=== PATIENT | male | born 1935 | race Caucasian/White ===

== ENCOUNTER 2017-05-11 07:08 | Observation (INO) | payer MEDICARE, OTHER ==
[2017-05-11] MEDS ORDERED: Aspirin 81 MG Tab.Chew PO ONE (07:16)
[2017-05-11] MEDS ORDERED: Sodium Chloride 0.9% 2.5 ML Syringe FLUSH PRN (07:16)
[2017-05-11] MEDS ORDERED: Sodium Chloride 0.9% 10 ML Syringe FLUSH PRN (07:16)
[2017-05-11] MEDS ORDERED: Nitroglycerin 0.4 MG Tab.SL SL PRN ×2 (07:16→09:38)
--- NOTE | 2017-05-11 07:28 | EDM.PDOC ---
ED HPI GENERAL MEDICAL PROBLEM - General Stated Complaint: CHEST PAINS Time Seen by Provider: 05/11/17 07:15 Source of Information: Reports: Patient History Limitations: Reports: No Limitations - History of Present Illness INITIAL COMMENTS - FREE TEXT/NARRATIVE: History of present illness: []Patient started having substernal, nonradiating, "solid", chest pain 30 minutes prior to arrival that was rated 6/10 associated with sweating. Patient has not had this pain in the past and states that on arrival his pain was 1.5/ 10. He did not take any aspirin. Review of systems: As per history of present illness and below otherwise all systems reviewed and negative. Past medical history: As per history of present illness and as reviewed below otherwise noncontributory. Surgical history: As per history of present illness and as reviewed below otherwise noncontributory. Social history: No reported history of drug or alcohol abuse. Family history: As per history of present illness and as reviewed below otherwise noncontributory. Physical exam: General: Well developed, well nourished in NAD HEENT: Atraumatic, normocephalic, pupils reactive, negative for conjunctival pallor or scleral icterus, mucous membranes moist, throat clear, neck supple, nontender, trachea midline. Lungs: Clear to auscultation, breath sounds equal bilaterally, chest nontender. Heart: S1S2, regular, negative for clicks, rubs, or JVD. Abdomen: Soft, nondistended, nontender. Negative for masses or hepatosplenomegaly. Negative for costovertebral tenderness. Pelvis: Stable nontender. Genitourinary: Deferred. Rectal: Deferred. Extremities: Atraumatic, negative for cords or calf pain. Neurovascular unremarkable. Neuro: Awake, alert, oriented. Cranial nerves II through XII unremarkable. Cerebellum unremarkable. Motor and sensory unremarkable throughout. Exam nonfocal. Diagnostics: []EKG showing Therapeutics: []Aspirin, nitroglycerin, Lopressor given Impression: []Atrial flutter/fib/chest pain/hypertension Plan: []Admit for observation to rule out [place] Definitive disposition and diagnosis as appropriate pending reevaluation and review of above. chest Pain Score (Numeric/FACES): 1 - Related Data Allergies Allergy/AdvReac Type Severity Reaction Status Date / Time No Known Allergies Allergy Verified 05/11/17 07:21 Home Meds: Home Meds Pantoprazole [ProTONIX] 05/11/17 [History] Simvastatin [Zocor] 05/11/17 [History] metFORMIN [Glucophage XR] 05/11/17 [History] ED ROS GENERAL - Review of Systems Review Of Systems: See Below (See history of present illness) ED EXAM, GENERAL - Physical Exam Exam: See Below (See history of present illness) Course - Vital Signs Last Recorded V/S: Last Vital Signs Temp 97.1 F 05/11/17 08:18 Pulse 135 H 05/11/17 09:40 Resp 18 05/11/17 09:40 BP 132/93 H 05/11/17 09:42 Pulse Ox 94 L 05/11/17 09:40 - Orders/Labs/Meds Orders: Active Orders 24 hr Category Date Time Status Patient Status [ADT] Stat ADT 05/11/17 08:54 Active EKG Documentation Completion [RC] STAT Care 05/11/17 07:15 Active EKG Documentation Completion [RC] STAT Care 05/11/17 09:38 Active Chest 1V Frontal [CR] Stat Exams 05/11/17 07:16 Taken Nitroglycerin [Nitrostat] Med 05/11/17 07:16 Active 0.4 mg SL Q5M PRN Nitroglycerin [Nitrostat] Med 05/11/17 09:38 Active 0.4 mg SL Q5M PRN Sodium Chloride 0.9% [Saline Flush] Med 05/11/17 07:16 Active 10 ml FLUSH ASDIRECTED PRN Sodium Chloride 0.9% [Saline Flush] Med 05/11/17 07:16 Active 2.5 ml FLUSH ASDIRECTED PRN Saline Lock Insert [OM.PC] Stat Oth 05/11/17 07:15 Ordered Medication Orders Nitroglycerin (Nitrostat) 0.4 mg SL Q5M PRN PRN Reason: Chest Pain Last Admin: 05/11/17 09:42 Dose: 0.4 mg Nitroglycerin (Nitrostat) 0.4 mg SL Q5M PRN PRN Reason: Chest Pain Sodium Chloride (Saline Flush) 10 ml FLUSH ASDIRECTED PRN PRN Reason: Keep Vein Open Last Admin: 05/11/17 07:34 Dose: 10 ml Sodium Chloride (Saline Flush) 2.5 ml FLUSH ASDIRECTED PRN PRN Reason: Keep Vein Open Last Admin: 05/11/17 07:35 Dose: 2.5 ml Labs: Laboratory Tests 05/11/17 05/11/17 05/11/17 Range/Units 07:25 07:26 07:26 WBC 7.59 (4.0-11.0) K/uL RBC 4.25 L (4.50-5.90) M/uL Hgb 13.3 (13.0-17.0) g/dL Hct 40.7 (38.0-50.0) % MCV 95.8 (80.0-98.0) fL MCH 31.3 (27.0-32.0) pg MCHC 32.7 (31.0-37.0) g/dL RDW Std Deviation 48.6 (28.0-62.0) fl RDW Coeff of Kiersten 14 (11.0-15.0) % Plt Count 178 (150-400) K/uL MPV 10.40 (7.40-12.00) fL Neut % (Auto) 66.7 (48.0-80.0) % Lymph % (Auto) 20.9 (16.0-40.0) % [place] % (Auto) 8.8 (0.0-15.0) % Eos % (Auto) 3.2 (0.0-7.0) % Baso % (Auto) 0.4 (0.0-1.5) % Neut # (Auto) 5.1 (1.4-5.7) K/uL Lymph # (Auto) 1.6 (0.6-2.4) K/uL [place] # (Auto) 0.7 (0.0-0.8) K/uL Eos # (Auto) 0.2 (0.0-0.7) K/uL Baso # (Auto) 0.0 (0.0-0.1) K/uL Nucleated RBC % 0.0 /100WBC Nucleated RBCs # 0 K/uL D-Dimer, Quantitative 0.32 (0.0-0.52) mg/LFEU Sodium 139 (136-146) mmol/L Potassium 4.4 (3.5-5.1) mmol/L Chloride 104 (98-110) mmol/L Carbon Dioxide 23 (21-31) mmol/L BUN 17 (6.0-23.0) mg/dL Creatinine 1.1 (0.6-1.5) mg/dL Est Cr Clr Drug Dosing 49.24 mL/min Estimated GFR (MDRD) > 60.0 ml/min Glucose 135 H (60-110) mg/dL Calcium 9.5 (8.8-10.8) mg/dL Total Bilirubin 0.4 (0.1-1.5) mg/dL AST 13 (5-40) IU/L ALT 15 (8-54) IU/L Alkaline Phosphatase 50 (40-150) Troponin I < 0.10 (0.0-0.29) NG/ML B-Natriuretic Peptide (<100) PG/ML Total Protein 7.4 (6.0-8.0) g/dL Albumin 4.2 (3.4-4.8) g/dL Globulin 3.2 (2.0-3.5) g/dL Albumin/Globulin Ratio 1.3 (1.3-2.8) 05/11/17 Range/Units 07:35 WBC (4.0-11.0) K/uL RBC (4.50-5.90) M/uL Hgb (13.0-17.0) g/dL Hct (38.0-50.0) % MCV (80.0-98.0) fL MCH (27.0-32.0) pg MCHC (31.0-37.0) g/dL RDW Std Deviation (28.0-62.0) fl RDW Coeff of Kiersten (11.0-15.0) % Plt Count (150-400) K/uL MPV (7.40-12.00) fL Neut % (Auto) (48.0-80.0) % Lymph % (Auto) (16.0-40.0) % [place] % (Auto) (0.0-15.0) % Eos % (Auto) (0.0-7.0) % Baso % (Auto) (0.0-1.5) % Neut # (Auto) (1.4-5.7) K/uL Lymph # (Auto) (0.6-2.4) K/uL [place] # (Auto) (0.0-0.8) K/uL Eos # (Auto) (0.0-0.7) K/uL Baso # (Auto) (0.0-0.1) K/uL Nucleated RBC % /100WBC Nucleated RBCs # K/uL D-Dimer, Quantitative (0.0-0.52) mg/LFEU Sodium (136-146) mmol/L Potassium (3.5-5.1) mmol/L Chloride (98-110) mmol/L Carbon Dioxide (21-31) mmol/L BUN (6.0-23.0) mg/dL Creatinine (0.6-1.5) mg/dL Est Cr Clr Drug Dosing mL/min Estimated GFR (MDRD) ml/min Glucose (60-110) mg/dL Calcium (8.8-10.8) mg/dL Total Bilirubin (0.1-1.5) mg/dL AST (5-40) IU/L ALT (8-54) IU/L Alkaline Phosphatase (40-150) Troponin I (0.0-0.29) NG/ML B-Natriuretic Peptide 213 H (<100) PG/ML Total Protein (6.0-8.0) g/dL Albumin (3.4-4.8) g/dL Globulin (2.0-3.5) g/dL Albumin/Globulin Ratio (1.3-2.8) Meds: Medications Generic Name Dose Route Start Last Admin Trade Name Freq PRN Reason Stop Dose Admin Nitroglycerin 0.4 mg 05/11/17 07:16 05/11/17 09:42 Nitrostat SL 0.4 mg Q5M PRN Administration Chest Pain Nitroglycerin 0.4 mg 05/11/17 09:38 Nitrostat SL Q5M PRN Chest Pain Sodium Chloride 10 ml 05/11/17 07:16 05/11/17 07:34 Saline Flush FLUSH 10 ml ASDIRECTED PRN Administration Keep Vein Open Sodium Chloride 2.5 ml 05/11/17 07:16 05/11/17 07:35 Saline Flush FLUSH 2.5 ml ASDIRECTED PRN Administration Keep Vein Open Discontinued Medications Generic Name Dose Route Start Last Admin Trade Name Freq PRN Reason Stop Dose Admin Aspirin 324 mg 05/11/17 07:16 05/11/17 07:34 Aspirin PO 05/11/17 07:17 324 mg ONETIME ONE Administration Sodium Chloride 500 mls @ 999 mls/hr 05/11/17 08:22 05/11/17 08:25 Normal Saline IV 05/11/17 08:52 999 mls/hr .Bolus ONE Administration Labetalol HCl 20 mg 05/11/17 08:34 05/11/17 09:39 Normodyne IVPUSH 05/11/17 08:35 Not Given .BOLUS ONE Protocol Labetalol HCl 20 mg 05/11/17 09:30 Normodyne IVPUSH 05/11/17 09:31 .BOLUS ONE Protocol Metoprolol Tartrate 5 mg 05/11/17 07:30 05/11/17 07:57 Lopressor IVPUSH 05/11/17 07:41 5 mg Q5M MANASA Administration Departure - Departure Time of Disposition: 10:03 Disposition: Refer to Observation Condition: Good Clinical Impression: Atrial fib/flutter, transient, Uncontrolled hypertension - My Orders Last 24 Hours: My Active Orders 05/11/17 07:15 EKG Documentation Completion [RC] STAT Saline Lock Insert [OM.PC] Stat 05/11/17 07:16 Chest 1V Frontal [CR] Stat Nitroglycerin [Nitrostat] 0.4 mg SL Q5M PRN Sodium Chloride 0.9% [Saline Flush] 10 ml FLUSH ASDIRECTED PRN Sodium Chloride 0.9% [Saline Flush] 2.5 ml FLUSH ASDIRECTED PRN 05/11/17 08:54 Patient Status [ADT] Stat 05/11/17 09:38 EKG Documentation Completion [RC] STAT Nitroglycerin [Nitrostat] 0.4 mg SL Q5M PRN - Assessment/Plan Last 24 Hours: My Active Orders 05/11/17 07:15 EKG Documentation Completion [RC] STAT Saline Lock Insert [OM.PC] Stat 05/11/17 07:16 Chest 1V Frontal [CR] Stat Nitroglycerin [Nitrostat] 0.4 mg SL Q5M PRN Sodium Chloride 0.9% [Saline Flush] 10 ml FLUSH ASDIRECTED PRN Sodium Chloride 0.9% [Saline Flush] 2.5 ml FLUSH ASDIRECTED PRN 05/11/17 08:54 Patient Status [ADT] Stat 05/11/17 09:38 EKG Documentation Completion [RC] STAT Nitroglycerin [Nitrostat] 0.4 mg SL Q5M PRN
[2017-05-11] MEDS: Metoprolol Tartrate 5 MG/5 ML SDV IVPUSH SCH ×3 (07:38→07:57)
[2017-05-11 07:55] LABS: CHLORIDE,CL 104 mmol/L (98-110); SODIUM,NA 139 mmol/L (136-146)
[2017-05-11] MEDS ORDERED: Sodium Chloride 0.9% 500 ML IV ONE (08:22)
[2017-05-11] MEDS ORDERED: Labetalol 5 MG/ML 5 ML Syringe IVPUSH ONE (08:34)
[2017-05-11] MEDS ORDERED: Labetalol 100 MG/20 ML MDV IVPUSH ONE (09:30)
--- NOTE | 2017-05-11 11:15 | PCM.HP ---
H&P History of Present Illness - General Date of Service: 05/11/17 Admit Problem/Dx: Chest pain, atrial fibrillation. Source of Information: Patient, Family History Limitations: Reports: No Limitations - History of Present Illness Initial Comments - Free Text/Narative: This 81 year old male with pmh of DM type 2, obesity, TIA 15 years ago or so, and obesity presented to the ED this morning with acute onset of substernal chest pain. This happened after he got out of the shower and was getting dressed. He denies radiation, no N/V, but did feel diaphoretic, lightheaded and dizzy. He denies feeling palpitations. He arrived within 30 minutes of pain starting to ED. He reports a strong family history of CAD, a brother and his father had MIS in their 40-50s. 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 He has controlled DM on metformin. He denies tobacco or recreational drug use. He reports he drinks a bottle of wine nightly. No feelings of alcohol withdrawl and does not feel as though he needs a drink upon waking up. In the ED labwork WNL. Magnesium 1.0 TSH 2.55. Initial EKG HR noted to be 137, sinus tachy vs atrial rhythm. He continued to have chest pain, he was given ASA and nitro SL x 1. This caused hypotension and he was give a fluid bolus of 500 ml. Repeat EKG reveal atrial fibrillation, rates 130s, he was then given 3 doses of Lopressor total of 15 mg IV. His rate was better controlled but remained Afib. He was feeling back to normal and no further chest pain. He will be admitted for new onset afib and chest pain. PCP is in [facility] But he goes back rarely. Will arrange follow up here with Dr. Skelton chest Pain Score (Numeric/FACES): 1 - Related Data Allergies/Adverse Reactions: Allergies Allergy/AdvReac Type Severity Reaction Status Date / Time No Known Allergies Allergy Verified 05/11/17 07:21 Home Medications: Home Meds Ferrous Sulfate [Iron] 1 tab PO DAILY 05/11/17 [History] Pantoprazole [ProTONIX] 1 tab PO DAILY 05/11/17 [History] Simvastatin [Zocor] 1 tab PO DAILY 05/11/17 [History] metFORMIN HCl [Metformin HCl] 1,000 mg PO BID 05/11/17 [History] Past Medical History Cardiovascular History: Reports: Heart Murmur, High Cholesterol, Hypertension ( hx of, but no longer takes medication for.). Denies: Blood Clots/VTE/DVT, Heart Failure, [place] Respiratory History: Reports: None. Denies: COPD, PE Gastrointestinal History: Reports: GERD Genitourinary History: Denies: Acute Renal Failure, Chronic Renal Insuffiency Neurological History: Reports: TIA (15 years ago) Psychiatric History: Reports: None Endocrine/Metabolic History: Reports: Diabetes, Type II, Obesity/BMI 30+ - Infectious Disease History Infectious Disease History: Reports: Chicken Pox, Measles, Mumps, Shingles - Past Surgical History Cardiovascular Surgical History: Reports: None GI Surgical History: Reports: Appendectomy, Cholecystectomy, Hernia, Abdominal 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 (x1 removed) Social & Family History - Family History Cardiac: Reports: [place] (brother and father) - Tobacco Use Smoking Status *Q: Never Smoker - Alcohol Use Days Per Week of Alcohol Use: 7 Number of Drinks Per Day: 2 Total Drinks Per Week: 14 - Recreational Drug Use Recreational Drug Use: No H&P Review of Systems - Review of Systems: Review Of Systems: See Below General: Reports: No Symptoms. Denies: Fever, Chills, Malaise HEENT: Reports: No Symptoms. Denies: Headaches, Sinus Congestion, Sore Throat Pulmonary: Reports: Shortness of Breath. Denies: Cough, Sputum Cardiovascular: Reports: Chest Pain (now gone. ), Lightheadedness. Denies: Palpitations, Orthopnea, Edema, Syncope Gastrointestinal: Reports: No Symptoms. Denies: Abdominal Pain, Black Stool, Bloody Stool, Decreased Appetite, Nausea, Vomiting Genitourinary: Reports: No Symptoms. Denies: Dysuria, Frequency, Burning Musculoskeletal: Reports: No Symptoms Psychiatric: Reports: No Symptoms Neurological: Reports: No Symptoms Exam - Exam Exam: See Below - Vital Signs Vital Signs: Last Vital Signs Temp 97.9 F 05/11/17 11:05 Pulse 71 05/11/17 11:05 Resp 20 05/11/17 11:05 BP 108/62 05/11/17 11:05 Pulse Ox 95 05/11/17 11:05 Weight: 112 kg - Exam Quality Assessment: Supplemental Oxygen, DVT Prophylaxis General: Alert, Oriented, Cooperative HEENT: Conjunctiva Clear, Mucosa Moist & [place], Posterior Pharynx Clear Neck: Supple Lungs: Clear to Auscultation, Normal Respiratory Effort Cardiovascular: Regular Rate, Irregular Rhythm, Systolic Murmur GI/Abdominal Exam: Normal Bowel Sounds, Soft, Non-Tender, No Distention, Other ( obese abdomen makes assessment difficult) Back Exam: Normal Inspection, Full Range of Motion, NT Extremities: Normal Inspection, Normal Range of Motion, Non-Tender, No Pedal Edema, Normal Capillary Refill Skin: Dry, Intact Neuro Extensive - Mental Status: Alert, Oriented x3, Normal Mood/Affect, Normal Cognition Neuro Extensive - Motor, Sensory, Reflexes: CN II-XII Intact, Normal Gait, Normal Reflexes Psychiatric: Alert, Normal Affect, Normal Mood - Patient Data Result Diagrams: 05/11/17 07:26 05/11/17 07:26 EKG INTERPRETATION EKG Date: 05/11/17 Rhythm: A-Fib Rate (Beats/Min): 137 P-Wave: Absent QRS: Normal ST-T: Normal *Q Meaningful Use (ADM) - VTE *Q VTE Criteria *Q: - Stroke *Q Stroke Criteria *Q: - AMI *Q AMI Criteria *Q: - Problem List (1) New onset atrial fibrillation SNOMED Code(s): 02245463 ICD Code: I48.91 - UNSPECIFIED ATRIAL FIBRILLATION Status: Acute Current Visit: Yes (2) Chest pain SNOMED Code(s): 34252800 ICD Code: R07.9 - CHEST PAIN, UNSPECIFIED Status: Acute Current Visit: Yes (3) Hypomagnesemia SNOMED Code(s): 434035496 ICD Code: E83.42 - HYPOMAGNESEMIA Status: Acute Current Visit: Yes (4) DM type 2 (diabetes mellitus, type 2) SNOMED Code(s): 89956373 ICD Code: E11.9 - TYPE 2 DIABETES MELLITUS WITHOUT COMPLICATIONS Status: Chronic Current Visit: Yes Qualifiers: Diabetes mellitus complication status: without complication Diabetes mellitus skilled nursing insulin use: without regional intermodal truck driver use Qualified Code(s): E11.9 - Type 2 diabetes mellitus without complications (5) Obesity (BMI 30-39.9) SNOMED Code(s): 223458424 ICD Code: E66.9 - OBESITY, UNSPECIFIED Status: Chronic Current Visit: Yes (6) Hyperlipidemia SNOMED Code(s): 45187191 ICD Code: E78.5 - HYPERLIPIDEMIA, UNSPECIFIED Status: Chronic Current Visit: Yes Problem List Initiated/Reviewed/Updated: Yes Orders Last 24hrs: Active Orders 24 hr Category Date Time Status Echo Comp wo Cont [US] Urgent Exams 05/11/17 10:01 Ordered Medication Orders Nitroglycerin (Nitrostat) 0.4 mg SL Q5M PRN PRN Reason: Chest Pain Last Admin: 05/11/17 09:42 Dose: 0.4 mg Nitroglycerin (Nitrostat) 0.4 mg SL Q5M PRN PRN Reason: Chest Pain Sodium Chloride (Saline Flush) 10 ml FLUSH ASDIRECTED PRN PRN Reason: Keep Vein Open Last Admin: 05/11/17 07:34 Dose: 10 ml Sodium Chloride (Saline Flush) 2.5 ml FLUSH ASDIRECTED PRN PRN Reason: Keep Vein Open Last Admin: 05/11/17 07:35 Dose: 2.5 ml Assessment/Plan Comment:: This 81 year old male admitted for new onset afib and chest pain 1. New onset A fib: Consulted Dr. Skelton. Will monitor on telemetry. Start Metoprolol XL 25 daily for now. Repeat EKG on floor shows he is now in SR rates in the 70s. CHADS-VASC score 4, will also start Xarelto 20 mg daily. He was educated on side effects of anticoagulation, such as intestinal bleeding and cerebral bleeds and what to monitor for. He verbally reports understanding. Magnesium low at 1.0, will replace with 4 gm IV. TSh WNL. Dr Joe also ordered for Lasix 20 mg. BNP 213. 2. Chest pain: No asymptomatic. Will again, monitor on telemetry. Trend troponins. Chest pain likely secondary to afib with RVR. 3. DM type 2: Monitor BS, well controlled. Continue Metformin for now. 4. Dyslipidemia: Continue Simvastatin. VTE: Xarelto Dispo: 1-2 days.
[2017-05-11] MEDS ORDERED: Acetaminophen 325 MG Tab PO PRN (11:18)
[2017-05-11] MEDS ORDERED: Furosemide 20 MG/2 ML VIAL IVPUSH ONE (11:20)
[2017-05-11] MEDS: Metoprolol Succinate 25 MG Tab.ER PO SCH (11:32)
[2017-05-11] MEDS ORDERED: Magnesium Sulfate/Water 4 GM in Premix Bag 1 BAG IV ONE (12:01)
--- NOTE | 2017-05-11 13:26 | CONS ---
DATE OF CONSULTATION: DATE OF : 1935 PRIMARY CARE PHYSICIAN: None PCP REASON FOR CONSULTATION: Atrial fibrillation and chest pain. HISTORY: This is an 81-year-old male with history of diabetes as well as hyperlipidemia, who presented to the hospital at this time due to heart racing and chest pain. He lives in [place] as well as in [place], [place]. This morning, when he got out from the shower, he started having chest pressure in the retrosternal area with no radiation. He rated it 5 on 10-pain scale. It lasted for 3 hours with feeling woozy, some shortness of breath and some cold sweats. No nausea and no vomiting. Then, he decided to come to the emergency room. In the emergency room, he was found to have an atrial fibrillation with a heart rate of 130, and he was given Lopressor 5 mg IV x2, as well as baby aspirin x4, and a nitroglycerin x1, and it seemed like the chest pressure seemed to subside. Currently, he converted to sinus rhythm. Chest pain has gone away. He denied a history of atrial fibrillation. Denied history of chest pressure like this, but most of the time when he has some chest symptom, it has happened when he eats late at night. He has a history of GERD, however, EGD has never been successfully performed. He had a colonoscopy a year ago and it seemed to be normal, no bleeding point. The reason for colonoscopy was anemia. Currently, he has hematocrit of 40. He stated that he had his stress test done 20 years ago. Unclear reason for his stress test, but it turned out very well. He also had an echo done in [place] in June of this year, and the report was not available. He denied orthopnea or PND. He is pretty active, still works, but he does not exercise. He did not have any problem with walking 2 flights of stairs. PAST MEDICAL HISTORY: Includes diabetes and hyperlipidemia. He had a sleep test done 4 years ago, and he did not have sleep apnea. SOCIAL HISTORY: Moderate smoker in the past, but he stopped for almost 10 years. No drug use. No alcohol consumption. FAMILY HISTORY: His father had a history of heart disease at 50. Brother with history of heart attack at 45. Mother had a history of heart attack at 54. CURRENT MEDICATIONS: Includes metformin, simvastatin, and Protonix as well. REVIEW OF SYSTEMS: Except for indicated in the HPI, it was negative. PHYSICAL EXAMINATION: VITAL SIGNS: Initial blood pressure was 174/118 and currently is 108/62; heart rate initially was 137 and currently 71, sinus rhythm; O2 saturation 95% on 2 L; temperature 36.6; respirations 15 to 20. HEENT: Not pale and no jaundiced. NECK: JVD is mildly positive. LUNGS: Crackles bilaterally. ABDOMEN: Soft and nontender. Bowel sounds present. No hepatosplenomegaly. HEART: Normal S1, S2. Irregular rate and rhythm. No murmur. EXTREMITIES: Legs, no edema. INVESTIGATIONS: CBC shows WBC 7, hematocrit of 40, hemoglobin of 13, and platelets 178. D-dimer 0.32. Sodium 139, potassium 4.4, chloride 104, bicarb 23, BUN 17, and creatinine 1.1. GFR is more than 60. BNP 213. TSH 2.5. Troponin was negative. ASSESSMENT AND PLAN: This is an 81-year-old male with history of diabetes and hyperlipidemia with chest pain as well as new onset of atrial fibrillation. Currently, he was converted to sinus rhythm. His EKG showed atrial fibrillation. I did not appreciate any ST-segment depression. We will do an echocardiogram, and he is currently in sinus rhythm. We will start on Toprol-XL 25 mg once a day as well as explained to him about stroke risk from atrial fibrillation and that he needs to be on the blood thinner. I will start him on Xarelto 20 mg once a day. Regarding chest pain with fast heart rate, I will definitely do a stress test. He stated that he cannot do a treadmill, would order a Lexiscan as an outpatient. I think he has some mild heart failure probably from atrial fibrillation with rapid ventricular response. We will give him one dose of Lasix 20 mg IV and then go from there. I will follow him. NGOC MENENDEZ /[id number]
[2017-05-11] MEDS: metFORMIN 500 MG Tab PO SCH ×2 (13:53→17:48)
--- NOTE | 2017-05-11 15:46 | CR ---
EXAM DATE: 05/11/17 PATIENT'S AGE: 81 Patient: JUDY GRAJEDA Facility: [place], [place] Site . Site : 1935 Study: XRay Chest [id number]/8/2017 8:11:11 AM Ordering Physician: Doctor Henson Final Report: INDICATION: PAIN/SHORTNESS OF BREATH Single AP view Findings: The lungs are clear. Pulmonary vascularity, mediastinum and cardiac silhouette are within normal limits. No effusions and no pneumothorax. Osseous structures appear unremarkable. Impression: No evidence of acute cardiopulmonary disease. Dictated by: Ned Chan MD @ 05/11/2017 08:20:55 (Electronic Signature) Report Signed by Proxy. CATHERINE
[2017-05-11] MEDS ORDERED: metFORMIN 500 MG Tab.ER PO SCH (17:00)
[2017-05-11] MEDS ORDERED: metFORMIN 500 MG Tab PO SCH (17:00)
[2017-05-11] MEDS ORDERED: Rivaroxaban 10 MG Tab PO SCH (17:30)
[2017-05-12 06:45] LABS: CHLORIDE,CL 105 mmol/L (98-110); SODIUM,NA 140 mmol/L (136-146)
[2017-05-12] MEDS ORDERED: Magnesium Sulfate/Water 2 GM in Premix Bag 1 BAG IV ONE (08:03)
[2017-05-12] MEDS: Metoprolol Succinate 25 MG Tab.ER PO SCH (08:31)
[2017-05-12] MEDS: metFORMIN 500 MG Tab PO SCH (08:32)
[2017-05-12] MEDS ORDERED: Simvastatin 10 MG Tab PO SCH (09:00)
[2017-05-12] MEDS ORDERED: Pantoprazole 40 MG Tab.CR PO SCH (09:00)
[2017-05-12] MEDS ORDERED: Ferrous Sulfate 325 MG Tab PO SCH (09:00)
--- NOTE | 2017-05-12 09:43 | PCM.PN ---
- General Info Date of Service: 05/12/17 Functional Status: Reports: Pain Controlled, Tolerating Diet, Urinating - Review of Systems General: Reports: No Symptoms HEENT: Reports: No Symptoms Pulmonary: Reports: No Symptoms Cardiovascular: Reports: No Symptoms Gastrointestinal: Reports: No Symptoms Genitourinary: Reports: No Symptoms Musculoskeletal: Reports: No Symptoms Skin: Reports: No Symptoms Neurological: Reports: No Symptoms Psychiatric: Reports: No Symptoms - Patient Data Vitals - Most Recent: Last Vital Signs Temp 97.1 F 05/12/17 07:00 Pulse 82 05/12/17 08:31 Resp 20 05/12/17 07:00 BP 100/57 L 05/12/17 08:31 Pulse Ox 92 L 05/12/17 07:00 Weight - Most Recent: 112 kg I&O - Last 24 Hours: Intake & Output 05/11/17 05/12/17 05/12/17 22:59 06:59 14:59 Intake Total 800 250 Output Total 1500 300 Balance -700 -50 Lab Results Last 24 Hours: Laboratory Results - last 24 hr 05/11/17 05/11/17 05/11/17 Range/Units 11:34 13:30 17:11 WBC (4.0-11.0) K/uL RBC (4.50-5.90) M/uL Hgb (13.0-17.0) g/dL Hct (38.0-50.0) % MCV (80.0-98.0) fL MCH (27.0-32.0) pg MCHC (31.0-37.0) g/dL RDW Std Deviation (28.0-62.0) fl RDW Coeff of Kiersten (11.0-15.0) % Plt Count (150-400) K/uL MPV (7.40-12.00) fL Neut % (Auto) (48.0-80.0) % Lymph % (Auto) (16.0-40.0) % [place] % (Auto) (0.0-15.0) % Eos % (Auto) (0.0-7.0) % Baso % (Auto) (0.0-1.5) % Neut # (Auto) (1.4-5.7) K/uL Lymph # (Auto) (0.6-2.4) K/uL [place] # (Auto) (0.0-0.8) K/uL Eos # (Auto) (0.0-0.7) K/uL Baso # (Auto) (0.0-0.1) K/uL Nucleated RBC % /100WBC Nucleated RBCs # K/uL Sodium (136-146) mmol/L Potassium (3.5-5.1) mmol/L Chloride (98-110) mmol/L Carbon Dioxide (21-31) mmol/L BUN (6.0-23.0) mg/dL Creatinine (0.6-1.5) mg/dL Est Cr Clr Drug Dosing mL/min Estimated GFR (MDRD) ml/min Glucose (60-110) mg/dL POC Glucose 126 H 109 (60-110) mg/dL Calcium (8.8-10.8) mg/dL Magnesium (1.5-2.3) mEq/L Troponin I < 0.10 (0.0-0.29) NG/ML 05/11/17 05/12/17 05/12/17 Range/Units 19:32 06:10 06:10 WBC 6.99 (4.0-11.0) K/uL RBC 3.91 L (4.50-5.90) M/uL Hgb 12.2 L (13.0-17.0) g/dL Hct 37.7 L (38.0-50.0) % MCV 96.4 (80.0-98.0) fL MCH 31.2 (27.0-32.0) pg MCHC 32.4 (31.0-37.0) g/dL RDW Std Deviation 47.8 (28.0-62.0) fl RDW Coeff of Kiersten 14 (11.0-15.0) % Plt Count 175 (150-400) K/uL MPV 10.50 (7.40-12.00) fL Neut % (Auto) 64.8 (48.0-80.0) % Lymph % (Auto) 23.7 (16.0-40.0) % [place] % (Auto) 7.9 (0.0-15.0) % Eos % (Auto) 3.3 (0.0-7.0) % Baso % (Auto) 0.3 (0.0-1.5) % Neut # (Auto) 4.5 (1.4-5.7) K/uL Lymph # (Auto) 1.7 (0.6-2.4) K/uL [place] # (Auto) 0.6 (0.0-0.8) K/uL Eos # (Auto) 0.2 (0.0-0.7) K/uL Baso # (Auto) 0.0 (0.0-0.1) K/uL Nucleated RBC % 0.0 /100WBC Nucleated RBCs # 0 K/uL Sodium 140 (136-146) mmol/L Potassium 4.4 (3.5-5.1) mmol/L Chloride 105 (98-110) mmol/L Carbon Dioxide 27 (21-31) mmol/L BUN 18 (6.0-23.0) mg/dL Creatinine 1.0 (0.6-1.5) mg/dL Est Cr Clr Drug Dosing 54.03 mL/min Estimated GFR (MDRD) > 60.0 ml/min Glucose 116 H (60-110) mg/dL POC Glucose (60-110) mg/dL Calcium 8.7 L (8.8-10.8) mg/dL Magnesium 1.4 L (1.5-2.3) mEq/L Troponin I < 0.10 (0.0-0.29) NG/ML 05/12/17 Range/Units 06:26 WBC (4.0-11.0) K/uL RBC (4.50-5.90) M/uL Hgb (13.0-17.0) g/dL Hct (38.0-50.0) % MCV (80.0-98.0) fL MCH (27.0-32.0) pg MCHC (31.0-37.0) g/dL RDW Std Deviation (28.0-62.0) fl RDW Coeff of Kiersten (11.0-15.0) % Plt Count (150-400) K/uL MPV (7.40-12.00) fL Neut % (Auto) (48.0-80.0) % Lymph % (Auto) (16.0-40.0) % [place] % (Auto) (0.0-15.0) % Eos % (Auto) (0.0-7.0) % Baso % (Auto) (0.0-1.5) % Neut # (Auto) (1.4-5.7) K/uL Lymph # (Auto) (0.6-2.4) K/uL [place] # (Auto) (0.0-0.8) K/uL Eos # (Auto) (0.0-0.7) K/uL Baso # (Auto) (0.0-0.1) K/uL Nucleated RBC % /100WBC Nucleated RBCs # K/uL Sodium (136-146) mmol/L Potassium (3.5-5.1) mmol/L Chloride (98-110) mmol/L Carbon Dioxide (21-31) mmol/L BUN (6.0-23.0) mg/dL Creatinine (0.6-1.5) mg/dL Est Cr Clr Drug Dosing mL/min Estimated GFR (MDRD) ml/min Glucose (60-110) mg/dL POC Glucose 111 H (60-110) mg/dL Calcium (8.8-10.8) mg/dL Magnesium (1.5-2.3) mEq/L Troponin I (0.0-0.29) NG/ML Med Orders - Current: Current Medications Acetaminophen (Tylenol) 650 mg PO Q4H PRN PRN Reason: Pain (mild 1-3) Ferrous Sulfate (Ferrous Sulfate) 325 mg PO DAILY [facility] Last Admin: 05/12/17 08:31 Dose: 325 mg Metformin HCl (Glucophage) 1,000 mg PO BIDMEALS [facility] Last Admin: 05/12/17 08:32 Dose: 1,000 mg Metoprolol Succinate (Toprol Xl) 25 mg PO DAILY [facility] Last Admin: 05/12/17 08:31 Dose: 25 mg Pantoprazole Sodium (Protonix) 40 mg PO ACBREAKFAST [facility] Last Admin: 05/12/17 08:31 Dose: 40 mg Rivaroxaban (Xarelto) 20 mg PO WITHDINNER [facility] Last Admin: 05/11/17 17:48 Dose: 20 mg Simvastatin (Zocor) 10 mg PO BEDTIME [facility] Last Admin: 05/12/17 08:31 Dose: 10 mg Sodium Chloride (Saline Flush) 10 ml FLUSH ASDIRECTED PRN PRN Reason: Keep Vein Open Last Admin: 05/11/17 07:34 Dose: 10 ml Sodium Chloride (Saline Flush) 2.5 ml FLUSH ASDIRECTED PRN PRN Reason: Keep Vein Open Last Admin: 05/11/17 07:35 Dose: 2.5 ml Discontinued Medications Aspirin (Aspirin) 324 mg PO ONETIME ONE Stop: 05/11/17 07:17 Last Admin: 05/11/17 07:34 Dose: 324 mg Furosemide (Lasix) 20 mg IVPUSH ONETIME ONE Stop: 05/11/17 11:21 Last Admin: 05/11/17 11:32 Dose: 20 mg Sodium Chloride (Normal Saline) 500 mls @ 999 mls/hr IV .Bolus ONE Stop: 05/11/17 08:52 Last Admin: 05/11/17 08:25 Dose: 999 mls/hr Magnesium Sulfate 4 gm/ Premix 100 mls @ 50 mls/hr IV ONETIME ONE Stop: 05/11/17 14:00 Last Admin: 05/11/17 12:32 Dose: 50 mls/hr Magnesium Sulfate 2 gm/ Premix 50 mls @ 50 mls/hr IV ONETIME ONE Stop: 05/12/17 09:02 Last Admin: 05/12/17 08:55 Dose: 50 mls/hr Labetalol HCl (Normodyne) 20 mg IVPUSH .BOLUS ONE PRN Reason: Protocol Stop: 05/11/17 08:35 Last Admin: 05/11/17 09:39 Dose: Not Given Labetalol HCl (Normodyne) 20 mg IVPUSH .BOLUS ONE PRN Reason: Protocol Stop: 05/11/17 09:31 Last Admin: 05/11/17 10:06 Dose: Not Given Metformin HCl (Glucophage Xr) 500 mg PO BIDMEALS [facility] Metformin HCl (Glucophage) 500 mg PO BIDMEALS [facility] Metoprolol Tartrate (Lopressor) 5 mg IVPUSH Q5M [facility] Stop: 05/11/17 07:41 Last Admin: 05/11/17 07:57 Dose: 5 mg Nitroglycerin (Nitrostat) 0.4 mg SL Q5M PRN PRN Reason: Chest Pain Last Admin: 05/11/17 09:42 Dose: 0.4 mg Nitroglycerin (Nitrostat) 0.4 mg SL Q5M PRN PRN Reason: Chest Pain - Exam General: Alert, Oriented HEENT: Pupils Equal, EOMI Neck: Supple, Trachea Midline Lungs: Clear to Auscultation, Normal Respiratory Effort Cardiovascular: Regular Rate, Regular Rhythm GI/Abdominal Exam: Normal Bowel Sounds, Soft Back Exam: Normal Inspection Extremities: Normal Inspection Skin: Warm, Dry, Intact Neurological: No New Focal Deficit Psy/Mental Status: Alert, Normal Affect, Normal Mood - Problem List Review Problem List Initiated/Reviewed/Updated: Yes - Plan Plan:: This 81 year old male admitted for new onset afib and chest pain 1. New onset A fib: Consulted Dr. Skelton. Will monitor on telemetry. Start Metoprolol XL 25 daily for now. Repeat EKG on floor shows he is now in SR rates in the 70s. CHADS-VASC score 4, will also start Xarelto 20 mg daily. He was educated on side effects of anticoagulation, such as intestinal bleeding and cerebral bleeds and what to monitor for. He verbally reports understanding. Magnesium low at 1.0, will replace with 4 gm IV. TSh WNL. Dr Joe also ordered for Lasix 20 mg. BNP 213. 2. Chest pain: No asymptomatic. Will again, monitor on telemetry. troponins x 3 negative. Chest pain likely secondary to afib with RVR. 3. DM type 2: Monitor BS, well controlled. Continue Metformin for now. 4. Dyslipidemia: Continue Simvastatin. VTE: Xarelto Dispo: 1-2 days.
--- NOTE | 2017-05-12 10:08 | PCM.DCSUM1 ---
Discharge Summary - Hospital Course Free Text/Narrative:: 81 yo male with hsitory of DM, hyperlipidemia admmitted for chest pain and new onset of atrial fibrillation. EKG showed atrial fibrillation without ST changes. He was started on topral xl for rate control and xarelto for anticoagulation. His troponin x 3 negative. He was monitored on telemetry. He remained in sinus rhythm. CXR no acute cardiopulmonary disease. Echo was done pending results. He was discharged in stable condition with outpatient stress lexiscan stress test. He was discharged with xarelto and toprol. He is to follow up with our professor of mechanical engineering Dr. Adler - Discharge Data Discharge Date: 05/12/17 Discharge Disposition: Home, Self-Care 01 Condition: Good - Patient Summary/Data Consults: Consultations 05/11/17 11:18 Consult to Physician [CONS] Routine - Patient Instructions Diet: Heart Healthy Diet, Diabetic Diet Activity: As Tolerated Driving: May Drive Today Showering/Bathing: May Shower Notify Provider of: Fever, Increased Pain, Swelling and Redness, Drainage, Nausea and/or Vomiting Other/Special Instructions: please get lexiscan stress test - Discharge Plan Prescriptions/Med Rec: Metoprolol Succinate [Toprol XL] 25 mg PO DAILY #30 tab.er Rivaroxaban [Xarelto] 20 mg PO WITHDINNER #30 tablet Home Medications: Home Meds Ferrous Sulfate [Iron] 1 tab PO DAILY 05/11/17 [History] Pantoprazole [ProTONIX] 1 tab PO DAILY 05/11/17 [History] Simvastatin [Zocor] 1 tab PO DAILY 05/11/17 [History] metFORMIN HCl [Metformin HCl] 1,000 mg PO BID 05/11/17 [History] Metoprolol Succinate [Toprol XL] 25 mg PO DAILY #30 tab.er 05/12/17 [Rx] Rivaroxaban [Xarelto] 20 mg PO WITHDINNER #30 tablet 05/12/17 [Rx] Patient Handouts: Metoprolol extended-release tablets, Rivaroxaban oral tablets , Acute Coronary Syndrome Referrals: [facility] [Outside] Titus Skelton MD [Physician] - 05/15/17 8:00 am - General Info Date of Service: 05/12/17 Functional Status: Reports: Pain Controlled - Review of Systems General: Reports: No Symptoms HEENT: Reports: No Symptoms Pulmonary: Reports: No Symptoms Cardiovascular: Reports: No Symptoms Gastrointestinal: Reports: No Symptoms Genitourinary: Reports: No Symptoms Musculoskeletal: Reports: No Symptoms Skin: Reports: No Symptoms Neurological: Reports: No Symptoms Psychiatric: Reports: No Symptoms - Patient Data Vitals - Most Recent: Last Vital Signs Temp 97.1 F 05/12/17 07:00 Pulse 82 05/12/17 08:31 Resp 20 05/12/17 07:00 BP 100/57 L 05/12/17 08:31 Pulse Ox 92 L 05/12/17 07:00 Weight - Most Recent: 112 kg I&O - Last 24 hours: Intake & Output 05/11/17 05/12/17 05/12/17 22:59 06:59 14:59 Intake Total 800 250 Output Total 1500 300 Balance -700 -50 Lab Results - Last 24 hrs: Laboratory Results - last 24 hr 05/11/17 05/11/17 05/11/17 Range/Units 11:34 13:30 17:11 WBC (4.0-11.0) K/uL RBC (4.50-5.90) M/uL Hgb (13.0-17.0) g/dL Hct (38.0-50.0) % MCV (80.0-98.0) fL MCH (27.0-32.0) pg MCHC (31.0-37.0) g/dL RDW Std Deviation (28.0-62.0) fl RDW Coeff of Kiersten (11.0-15.0) % Plt Count (150-400) K/uL MPV (7.40-12.00) fL Neut % (Auto) (48.0-80.0) % Lymph % (Auto) (16.0-40.0) % [place] % (Auto) (0.0-15.0) % Eos % (Auto) (0.0-7.0) % Baso % (Auto) (0.0-1.5) % Neut # (Auto) (1.4-5.7) K/uL Lymph # (Auto) (0.6-2.4) K/uL [place] # (Auto) (0.0-0.8) K/uL Eos # (Auto) (0.0-0.7) K/uL Baso # (Auto) (0.0-0.1) K/uL Nucleated RBC % /100WBC Nucleated RBCs # K/uL Sodium (136-146) mmol/L Potassium (3.5-5.1) mmol/L Chloride (98-110) mmol/L Carbon Dioxide (21-31) mmol/L BUN (6.0-23.0) mg/dL Creatinine (0.6-1.5) mg/dL Est Cr Clr Drug Dosing mL/min Estimated GFR (MDRD) ml/min Glucose (60-110) mg/dL POC Glucose 126 H 109 (60-110) mg/dL Calcium (8.8-10.8) mg/dL Magnesium (1.5-2.3) mEq/L Troponin I < 0.10 (0.0-0.29) NG/ML 05/11/17 05/12/17 05/12/17 Range/Units 19:32 06:10 06:10 WBC 6.99 (4.0-11.0) K/uL RBC 3.91 L (4.50-5.90) M/uL Hgb 12.2 L (13.0-17.0) g/dL Hct 37.7 L (38.0-50.0) % MCV 96.4 (80.0-98.0) fL MCH 31.2 (27.0-32.0) pg MCHC 32.4 (31.0-37.0) g/dL RDW Std Deviation 47.8 (28.0-62.0) fl RDW Coeff of Kiersten 14 (11.0-15.0) % Plt Count 175 (150-400) K/uL MPV 10.50 (7.40-12.00) fL Neut % (Auto) 64.8 (48.0-80.0) % Lymph % (Auto) 23.7 (16.0-40.0) % [place] % (Auto) 7.9 (0.0-15.0) % Eos % (Auto) 3.3 (0.0-7.0) % Baso % (Auto) 0.3 (0.0-1.5) % Neut # (Auto) 4.5 (1.4-5.7) K/uL Lymph # (Auto) 1.7 (0.6-2.4) K/uL [place] # (Auto) 0.6 (0.0-0.8) K/uL Eos # (Auto) 0.2 (0.0-0.7) K/uL Baso # (Auto) 0.0 (0.0-0.1) K/uL Nucleated RBC % 0.0 /100WBC Nucleated RBCs # 0 K/uL Sodium 140 (136-146) mmol/L Potassium 4.4 (3.5-5.1) mmol/L Chloride 105 (98-110) mmol/L Carbon Dioxide 27 (21-31) mmol/L BUN 18 (6.0-23.0) mg/dL Creatinine 1.0 (0.6-1.5) mg/dL Est Cr Clr Drug Dosing 54.03 mL/min Estimated GFR (MDRD) > 60.0 ml/min Glucose 116 H (60-110) mg/dL POC Glucose (60-110) mg/dL Calcium 8.7 L (8.8-10.8) mg/dL Magnesium 1.4 L (1.5-2.3) mEq/L Troponin I < 0.10 (0.0-0.29) NG/ML 05/12/17 Range/Units 06:26 WBC (4.0-11.0) K/uL RBC (4.50-5.90) M/uL Hgb (13.0-17.0) g/dL Hct (38.0-50.0) % MCV (80.0-98.0) fL MCH (27.0-32.0) pg MCHC (31.0-37.0) g/dL RDW Std Deviation (28.0-62.0) fl RDW Coeff of Kiersten (11.0-15.0) % Plt Count (150-400) K/uL MPV (7.40-12.00) fL Neut % (Auto) (48.0-80.0) % Lymph % (Auto) (16.0-40.0) % [place] % (Auto) (0.0-15.0) % Eos % (Auto) (0.0-7.0) % Baso % (Auto) (0.0-1.5) % Neut # (Auto) (1.4-5.7) K/uL Lymph # (Auto) (0.6-2.4) K/uL [place] # (Auto) (0.0-0.8) K/uL Eos # (Auto) (0.0-0.7) K/uL Baso # (Auto) (0.0-0.1) K/uL Nucleated RBC % /100WBC Nucleated RBCs # K/uL Sodium (136-146) mmol/L Potassium (3.5-5.1) mmol/L Chloride (98-110) mmol/L Carbon Dioxide (21-31) mmol/L BUN (6.0-23.0) mg/dL Creatinine (0.6-1.5) mg/dL Est Cr Clr Drug Dosing mL/min Estimated GFR (MDRD) ml/min Glucose (60-110) mg/dL POC Glucose 111 H (60-110) mg/dL Calcium (8.8-10.8) mg/dL Magnesium (1.5-2.3) mEq/L Troponin I (0.0-0.29) NG/ML Med Orders - Current: Current Medications Acetaminophen (Tylenol) 650 mg PO Q4H PRN PRN Reason: Pain (mild 1-3) Ferrous Sulfate (Ferrous Sulfate) 325 mg PO DAILY [facility] Last Admin: 05/12/17 08:31 Dose: 325 mg Metformin HCl (Glucophage) 1,000 mg PO BIDMEALS [facility] Last Admin: 05/12/17 08:32 Dose: 1,000 mg Metoprolol Succinate (Toprol Xl) 25 mg PO DAILY [facility] Last Admin: 05/12/17 08:31 Dose: 25 mg Pantoprazole Sodium (Protonix) 40 mg PO ACBREAKFAST [facility] Last Admin: 05/12/17 08:31 Dose: 40 mg Rivaroxaban (Xarelto) 20 mg PO WITHDINNER [facility] Last Admin: 05/11/17 17:48 Dose: 20 mg Simvastatin (Zocor) 10 mg PO BEDTIME [facility] Last Admin: 05/12/17 08:31 Dose: 10 mg Sodium Chloride (Saline Flush) 10 ml FLUSH ASDIRECTED PRN PRN Reason: Keep Vein Open Last Admin: 05/11/17 07:34 Dose: 10 ml Sodium Chloride (Saline Flush) 2.5 ml FLUSH ASDIRECTED PRN PRN Reason: Keep Vein Open Last Admin: 05/11/17 07:35 Dose: 2.5 ml Discontinued Medications Aspirin (Aspirin) 324 mg PO ONETIME ONE Stop: 05/11/17 07:17 Last Admin: 05/11/17 07:34 Dose: 324 mg Furosemide (Lasix) 20 mg IVPUSH ONETIME ONE Stop: 05/11/17 11:21 Last Admin: 05/11/17 11:32 Dose: 20 mg Sodium Chloride (Normal Saline) 500 mls @ 999 mls/hr IV .Bolus ONE Stop: 05/11/17 08:52 Last Admin: 05/11/17 08:25 Dose: 999 mls/hr Magnesium Sulfate 4 gm/ Premix 100 mls @ 50 mls/hr IV ONETIME ONE Stop: 05/11/17 14:00 Last Admin: 05/11/17 12:32 Dose: 50 mls/hr Magnesium Sulfate 2 gm/ Premix 50 mls @ 50 mls/hr IV ONETIME ONE Stop: 05/12/17 09:02 Last Admin: 05/12/17 08:55 Dose: 50 mls/hr Labetalol HCl (Normodyne) 20 mg IVPUSH .BOLUS ONE PRN Reason: Protocol Stop: 05/11/17 08:35 Last Admin: 05/11/17 09:39 Dose: Not Given Labetalol HCl (Normodyne) 20 mg IVPUSH .BOLUS ONE PRN Reason: Protocol Stop: 05/11/17 09:31 Last Admin: 05/11/17 10:06 Dose: Not Given Metformin HCl (Glucophage Xr) 500 mg PO BIDMEALS [facility] Metformin HCl (Glucophage) 500 mg PO BIDMEALS [facility] Metoprolol Tartrate (Lopressor) 5 mg IVPUSH Q5M [facility] Stop: 05/11/17 07:41 Last Admin: 05/11/17 07:57 Dose: 5 mg Nitroglycerin (Nitrostat) 0.4 mg SL Q5M PRN PRN Reason: Chest Pain Last Admin: 05/11/17 09:42 Dose: 0.4 mg Nitroglycerin (Nitrostat) 0.4 mg SL Q5M PRN PRN Reason: Chest Pain - Exam General: Reports: Alert, Oriented HEENT: Reports: Pupils Equal, EOMI Neck: Reports: Supple Lungs: Reports: Clear to Auscultation Cardiovascular: Reports: Regular Rate, Regular Rhythm GI/Abdominal Exam: Normal Bowel Sounds, Soft Back Exam: Reports: Normal Inspection, Full Range of Motion Skin: Reports: Warm, Dry, Intact Neurological: Reports: No New Focal Deficit Psy/Mental Status: Reports: Alert, Normal Affect, Normal Mood *Q Meaningful Use (DIS) - VTE *Q VTE Criteria *Q: - Stroke *Q Stroke Criteria *Q: - AMI *Q AMI Criteria *Q:
--- NOTE | 2017-05-16 13:35 | ECHO ---
EXAM DATE: 05/11/17 PATIENT'S AGE: 81 The echocardiogram report can be seen in this patient's EMR (Electronic Medical Record) in the Reports section. The report has also been scanned into PACs. CATHERINE
== END 2017-05-12 11:25 | disposition home or self-care (01) ==
LOC: MW.ED 07:08 → UNDOADMOB 09:17 → MW.MS 09:17
PROVIDERS: ADMIT Family Medicine; ATTEND Family Medicine
DX: I48.91 Unspecified atrial fibrillation (principal); E11.9 Type 2 diabetes mellitus without complications; E78.5 Hyperlipidemia, unspecified; E66.9 Obesity, unspecified; E83.42 Hypomagnesemia; K21.9 Gastro-esophageal reflux disease without esophagitis; Z79.899 Other long term (current) drug therapy; Z79.84 Long term (current) use of oral hypoglycemic drugs; Z86.73 Personal history of transient ischemic attack (TIA), and cerebral infarction without residual deficits; Z68.30 Body mass index [BMI] 30.0-30.9, adult; Z90.49 Acquired absence of other specified parts of digestive tract
CPT/HCPCS: 36415; 71010; 80048; 80053; 82962; 83735; 83880; 84443; 84484; 85025; 85379; 93005; 93306; 96361; 96365; 96366; 96375; 99285; A9270; G0378; J3475; J7040; 96374; 99284

== ENCOUNTER 2019-03-24 00:21 | Observation (INO) | payer MEDICARE, OTHER ==
[2019-03-24] MEDS ORDERED: Diltiazem 25 MG/5 ML SDV IVPUSH ONE (00:23)
[2019-03-24] MEDS ORDERED: Sodium Chloride 0.9% 1,000 ML IV SCH (00:30)
[2019-03-24] MEDS ORDERED: Sodium Chloride 0.9% 100 ML ONE ×2 (00:57→00:58)
[2019-03-24] MEDS ORDERED: Diltiazem 125 MG in Sodium Chloride 0.9% 100 ML IV SCH (01:00)
[2019-03-24] MEDS ORDERED: Diltiazem 100 MG in Sodium Chloride 0.9% 100 ML IV SCH ×2 (01:15→07:16)
--- NOTE | 2019-03-24 01:15 | CR ---
Indication: Chest pain Technique: Chest 1 view Comparison: None Findings/Impression: Cardiac size appears prominent. Normal pulmonary vasculature. Lungs and pleural spaces are clear. No acute osseous abnormality. Dictated by Paulina Hernandez MD @ Mar 24 2019 1:13AM Signed by Dr. Paulina Hernandez @ Mar 24 2019 1:14AM
--- NOTE | 2019-03-24 01:16 | EDM.PDOC ---
ED HPI GENERAL MEDICAL PROBLEM - General Chief Complaint: Cardiovascular Problem Stated Complaint: AMB Time Seen by Provider: 03/24/19 01:14 Source of Information: Reports: Patient, EMS - History of Present Illness INITIAL COMMENTS - FREE TEXT/NARRATIVE: HISTORY AND PHYSICAL: History of present illness: []A shunt presents via EMS with atrial fibrillation RVR, EMS did provide 25 mg of Cardizem IV improvement rate was in the 170s previously, it is now in the low 100s up to 130s We did repeat a dose of Cardizem 20 mg IV on arrival patient is in no distress asymptomatic no fever nausea vomiting chills sweats no chest pain shortness breath headache dizziness palpitation about a urine symptoms Earlier he had experienced chest pain with the higher heart rates Review of systems: As per history of present illness and below otherwise all systems reviewed and negative. Past medical history: As per history of present illness and as reviewed below otherwise noncontributory. Surgical history: As per history of present illness and as reviewed below otherwise noncontributory. Social history: No reported history of drug or alcohol abuse. Family history: As per history of present illness and as reviewed below otherwise noncontributory. Physical exam: HEENT: Atraumatic, normocephalic, pupils reactive, negative for conjunctival pallor or scleral icterus, mucous membranes moist, throat clear, neck supple, nontender, trachea midline. Lungs: Clear to auscultation, breath sounds equal bilaterally, chest nontender. Heart: S1S2, regular, negative for clicks, rubs, or JVD. Abdomen: Soft, nondistended, nontender. Negative for masses or hepatosplenomegaly. Negative for costovertebral tenderness. Pelvis: Stable nontender. Genitourinary: Deferred. Rectal: Deferred. Extremities: Atraumatic, negative for cords or calf pain. Neurovascular unremarkable. Neuro: Awake, alert, oriented. Cranial nerves II through XII unremarkable. Cerebellum unremarkable. Motor and sensory unremarkable throughout. Exam nonfocal. Diagnostics: [cBC CMP UA troponin EKG Chest 1 view ] Therapeutics: [ normal saline Cardizem 25 mg IV, followed by 20 mg IV Cardizem drip ] 5 and titrate, Cardizem was titrated up to 15, patient developed chest pain again hence he was cardioverted just 50 J currently sinus rhythm Impression: [ atrial fibrillation with RVR-resolved I cardioverted [place] our sinus rhythm in the 80s Chronic history of baseline ] Definitive disposition and diagnosis as appropriate pending reevaluation and review of above. Treatments POWER MANAGER: Reports: IV/IO, Oxygen left chest Pain Score (Numeric/FACES): 2 - Related Data Allergies Allergy/AdvReac Type Severity Reaction Status Date / Time No Known Allergies Allergy Verified 03/24/19 00:27 Home Meds: Home Meds Ferrous Sulfate [Iron] 1 tab PO DAILY 05/11/17 [History] Pantoprazole [ProTONIX] 40 mg PO DAILY 05/11/17 [History] Simvastatin [Zocor] 1 tab PO DAILY 05/11/17 [History] metFORMIN HCl [Metformin HCl] 1,000 mg PO DAILY 05/11/17 [History] Rivaroxaban [Xarelto] 20 mg PO WITHDINNER #30 tablet 05/12/17 [Rx] Past Medical History Cardiovascular History: Reports: Afib, Heart Murmur, High Cholesterol, Hypertension Respiratory History: Reports: Other (See Below) Other Respiratory History: Home O2 @ 2.5LPM PRN Gastrointestinal History: Reports: GERD Neurological History: Reports: TIA Psychiatric History: Reports: None Endocrine/Metabolic History: Reports: Diabetes, Type II, Obesity/BMI 30+ - Infectious Disease History Infectious Disease History: Reports: Chicken Pox, Measles, Mumps, Shingles - Past Surgical History Cardiovascular Surgical History: Reports: None GI Surgical History: Reports: Appendectomy, Cholecystectomy, Hernia, Abdominal 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 Social & Family History - Family History Family Medical History: Noncontributory Cardiac: Reports: HI - Tobacco Use Smoking Status *Q: Never Smoker - Caffeine Use Caffeine Use: Reports: Coffee - Recreational Drug Use Recreational Drug Use: No ED ROS GENERAL - Review of Systems Review Of Systems: See Below ED EXAM, GENERAL - Physical Exam Exam: See Below Course - Vital Signs Last Recorded V/S: Last Vital Signs Temp 96.8 F 03/24/19 00:21 Pulse 144 H 03/24/19 02:15 Resp 22 H 03/24/19 02:15 BP 105/64 03/24/19 02:15 Pulse Ox 93 L 03/24/19 02:15 - Orders/Labs/Meds Orders: Active Orders 24 hr Category Date Time Status EKG Documentation Completion [RC] STAT Care 03/24/19 00:36 Active UA RFX LIZBETH AND CULT IF INDIC [URIN] Stat Lab 03/24/19 00:23 Ordered Diltiazem 100 mg Med 03/24/19 01:15 Active Sodium Chloride 0.9% [Normal Saline] 100 ml IV ASDIRECTED Sodium Chloride 0.9% [Normal Saline] 1,000 ml Med 03/24/19 00:30 Active IV STAT Medication Orders Sodium Chloride (Normal Saline) 1,000 mls @ 125 mls/hr IV STAT MANASA Last Admin: 03/24/19 00:36 Dose: 125 mls/hr Diltiazem HCl 100 mg/ Sodium (Chloride) 120 mls @ 5 mls/hr IV ASDIRECTED MANASA; Protocol Labs: Laboratory Tests 03/24/19 03/24/19 Range/Units 01:40 01:40 WBC 9.21 (4.0-11.0) K/uL RBC 3.67 L (4.50-5.90) M/uL Hgb 11.6 L (13.0-17.0) g/dL Hct 37.2 L (38.0-50.0) % MCV 101.4 H (80.0-98.0) fL MCH 31.6 (27.0-32.0) pg MCHC 31.2 (31.0-37.0) g/dL RDW Std Deviation 47.2 (28.0-62.0) fl RDW Coeff of Kiersten 13 (11.0-15.0) % Plt Count 147 L (150-400) K/uL MPV 10.40 (7.40-12.00) fL Neut % (Auto) 80.7 H (48.0-80.0) % Lymph % (Auto) 9.2 L (16.0-40.0) % [place] % (Auto) 8.5 (0.0-15.0) % Eos % (Auto) 1.3 (0.0-7.0) % Baso % (Auto) 0.3 (0.0-1.5) % Neut # (Auto) 7.4 H (1.4-5.7) K/uL Lymph # (Auto) 0.9 (0.6-2.4) K/uL [place] # (Auto) 0.8 (0.0-0.8) K/uL Eos # (Auto) 0.1 (0.0-0.7) K/uL Baso # (Auto) 0.0 (0.0-0.1) K/uL Sodium 141 (136-148) mmol/L Potassium 4.5 (3.5-5.1) mmol/L Chloride 104 (98-107) mmol/L Carbon Dioxide 32.6 H (21.0-32.0) mmol/L BUN 25 H (7.0-18.0) mg/dL Creatinine 1.6 H (0.8-1.3) mg/dL Est Cr Clr Drug Dosing 34.98 mL/min Estimated GFR (MDRD) 41.5 ml/min Glucose 229 H (74-106) mg/dL Calcium 8.3 L (8.5-10.1) mg/dL Total Bilirubin 0.2 (0.2-1.0) mg/dL AST 10 L (15-37) IU/L ALT 22 (14-63) IU/L Alkaline Phosphatase 56 (46-116) U/L Troponin I < 0.050 (0.000-0.056) ng/mL Total Protein 6.8 (6.4-8.2) g/dL Albumin 3.2 L (3.4-5.0) g/dL Globulin 3.6 (2.6-4.0) g/dL Albumin/Globulin Ratio 0.9 (0.9-1.6) Lipase 117 (73-393) U/L Meds: Medications Generic Name Dose Route Start Last Admin Trade Name Freq PRN Reason Stop Dose Admin Sodium Chloride 1,000 mls @ 125 mls/hr 03/24/19 00:30 03/24/19 00:36 Normal Saline IV 125 mls/hr STAT MANASA Administration Diltiazem HCl 100 mg/ Sodium 120 mls @ 5 mls/hr 03/24/19 01:15 Chloride IV ASDIRECTED MANASA Protocol Discontinued Medications Generic Name Dose Route Start Last Admin Trade Name Freq PRN Reason Stop Dose Admin Diltiazem HCl 20 mg 03/24/19 00:23 03/24/19 00:30 Diltiazem IVPUSH 03/24/19 00:24 20 mg ONETIME ONE Administration Sodium Chloride Confirm 03/24/19 00:57 03/24/19 01:08 Normal Saline Administered 10/21/19 00:58 Not Given Dose 100 mls @ as directed .ROUTE .STK-MED ONE Sodium Chloride Confirm 03/24/19 00:58 03/24/19 01:08 Normal Saline Administered 03/24/19 00:59 Not Given Dose 100 mls @ as directed .ROUTE .STK-MED ONE Midazolam HCl 2 mg 03/24/19 02:38 03/24/19 02:44 Versed 1 Mg/Ml IVPUSH 03/24/19 02:39 2 mg ONETIME ONE Administration Morphine Sulfate 2 mg 03/24/19 02:38 03/24/19 02:43 Morphine IVPUSH 03/24/19 02:39 2 mg ONETIME ONE Administration Departure - Departure Time of Disposition: 03:26 Disposition: Refer to Observation Condition: Good Clinical Impression: Tachycardia Referrals: Titus Skelton MD [Primary Care Provider] - Forms: ED Department Discharge - My Orders Last 24 Hours: My Active Orders 03/24/19 00:23 UA RFX LIZBETH AND CULT IF INDIC [URIN] Stat 03/24/19 00:30 Sodium Chloride 0.9% [Normal Saline] 1,000 ml IV STAT 03/24/19 00:36 EKG Documentation Completion [RC] STAT 03/24/19 01:15 Diltiazem 100 mg Sodium Chloride 0.9% [Normal Saline] 100 ml IV ASDIRECTED - Assessment/Plan Last 24 Hours: My Active Orders 03/24/19 00:23 UA RFX LIZBETH AND CULT IF INDIC [URIN] Stat 03/24/19 00:30 Sodium Chloride 0.9% [Normal Saline] 1,000 ml IV STAT 03/24/19 00:36 EKG Documentation Completion [RC] STAT 03/24/19 01:15 Diltiazem 100 mg Sodium Chloride 0.9% [Normal Saline] 100 ml IV ASDIRECTED
[2019-03-24 02:09] LABS: BLOOD UREA NITROGEN,BUN 25 mg/dL (7.0-18.0); CARBON DIOXIDE,CO2 32.6 mmol/L (21.0-32.0); CHLORIDE,CL 104 mmol/L (98-107); GLUCOSE RANDOM 229 mg/dL (74-106); LIPASE 117 U/L (73-393); POTASSIUM,K 4.5 mmol/L (3.5-5.1); SODIUM,NA 141 mmol/L (136-148)
[2019-03-24] MEDS ORDERED: Midazolam 1 MG/ML 2 ML SDV IVPUSH ONE (02:38)
[2019-03-24] MEDS ORDERED: Morphine 2 MG/ML Syringe IVPUSH ONE (02:38)
[2019-03-24] MEDS ORDERED: Magnesium Sulfate/Water 2 GM in Premix Bag 1 BAG IV ONE (07:22)
[2019-03-24] MEDS: Insulin Aspart 100 Units/ML 3 ML Pen SUBCUT SCH ×2 (08:12→12:06)
[2019-03-24 08:19] LABS: HEMOGLOBIN A1C 7.1 % (4.5-6.2)
[2019-03-24] MEDS ORDERED: Pneumococcal Polyvalent-23 Vaccine 0.5 ML SDV IM ONE ×3 (08:30→09:30)
[2019-03-24] MEDS ORDERED: Diltiazem 120 MG Cap.CD PO SCH (09:00)
[2019-03-24] MEDS ORDERED: Pantoprazole 40 MG Tab.CR PO SCH (09:00)
--- NOTE | 2019-03-24 10:50 | PCM.DCSUM1 ---
Discharge Summary - Hospital Course Free Text/Narrative:: 83 y/o male with history of Afib on Xarelto who presented to the ER with chest pain, palpitations and found to be in Afib with RVR. He was started on Diltiazem drip and was cardioverted needing 50 J. Since then, he has been asymptomatic, sinus rhythm and rate controlled. He stated that he discontinued his metoprolol at the advise of his PCP since it was making him dizzy, weak. Has not been taking beta-lu for more than 1 year now. Troponins x3 were negative. Echo results were pending. Drinks 1-2 glasses of wine/day. Denies any sleep apnea. States he has had multiple sleep studies which have been negative. He was discharged home and advised to continue Xarelto and Follow-up with cardiology as scheduled day/time. - Discharge Data Discharge Date: 03/24/19 Discharge Disposition: Home, Self-Care 01 Condition: Stable - Referral to Home Health Primary Care Physician: Titus Skelton MD - Patient Instructions Diet: Diabetic Diet Activity: As Tolerated Notify Provider of: Fever, Increased Pain, Nausea and/or Vomiting - Discharge Plan *PRESCRIPTION DRUG MONITORING PROGRAM REVIEWED*: Not Applicable *COPY OF PRESCRIPTION DRUG MONITORING REPORT IN PATIENT LEI: Not Applicable Home Medications: Home Meds Ferrous Sulfate [Iron] 1 tab PO DAILY 05/11/17 [History] Pantoprazole [ProTONIX] 40 mg PO DAILY 05/11/17 [History] Simvastatin [Zocor] 80 tab PO DAILY 05/11/17 [History] metFORMIN HCl [Metformin HCl] 1,000 mg PO DAILY 05/11/17 [History] Rivaroxaban [Xarelto] 20 mg PO DAILY 03/24/19 [History] Patient Handouts: Atrial Fibrillation, [id number], Preventing Atrial Fibrillation-Related Stroke Referrals: Anam Peck,Heather [Ordering Only Provider] - Titus Skelton MD [Primary Care Provider] - 03/25/19 2:30 pm - Discharge Summary/Plan Comment DC Time >30 min.: No - Patient Data Vitals - Most Recent: Last Vital Signs Temp 36.4 C 03/24/19 08:00 Pulse 86 03/24/19 09:37 Resp 20 03/24/19 09:37 BP 133/73 03/24/19 08:00 Pulse Ox 88 L 03/24/19 09:37 Weight - Most Recent: 122.8 kg I&O - Last 24 hours: Intake & Output 03/23/19 03/24/19 03/24/19 22:59 06:59 14:59 Intake Total 278 Balance 278 Lab Results - Last 24 hrs: Laboratory Results - last 24 hr 03/24/19 03/24/19 03/24/19 Range/Units 01:40 01:40 01:40 WBC 9.21 (4.0-11.0) K/uL RBC 3.67 L (4.50-5.90) M/uL Hgb 11.6 L (13.0-17.0) g/dL Hct 37.2 L (38.0-50.0) % MCV 101.4 H (80.0-98.0) fL MCH 31.6 (27.0-32.0) pg MCHC 31.2 (31.0-37.0) g/dL RDW Std Deviation 47.2 (28.0-62.0) fl RDW Coeff of Kiersten 13 (11.0-15.0) % Plt Count 147 L (150-400) K/uL MPV 10.40 (7.40-12.00) fL Neut % (Auto) 80.7 H (48.0-80.0) % Lymph % (Auto) 9.2 L (16.0-40.0) % [place] % (Auto) 8.5 (0.0-15.0) % Eos % (Auto) 1.3 (0.0-7.0) % Baso % (Auto) 0.3 (0.0-1.5) % Neut # (Auto) 7.4 H (1.4-5.7) K/uL Lymph # (Auto) 0.9 (0.6-2.4) K/uL [place] # (Auto) 0.8 (0.0-0.8) K/uL Eos # (Auto) 0.1 (0.0-0.7) K/uL Baso # (Auto) 0.0 (0.0-0.1) K/uL Sodium 141 (136-148) mmol/L Potassium 4.5 (3.5-5.1) mmol/L Chloride 104 (98-107) mmol/L Carbon Dioxide 32.6 H (21.0-32.0) mmol/L BUN 25 H (7.0-18.0) mg/dL Creatinine 1.6 H (0.8-1.3) mg/dL Est Cr Clr Drug Dosing 34.98 mL/min Estimated GFR (MDRD) 41.5 ml/min Glucose 229 H (74-106) mg/dL POC Glucose (60-110) mg/dL Hemoglobin A1c (4.5-6.2) % Calcium 8.3 L (8.5-10.1) mg/dL Magnesium 1.6 L (1.8-2.4) mg/dL Iron (50-175) ug/dL TIBC (250-450) ug/dL % Saturation (20-55) % Ferritin (26-388) ng/mL Total Bilirubin 0.2 (0.2-1.0) mg/dL AST 10 L (15-37) IU/L ALT 22 (14-63) IU/L Alkaline Phosphatase 56 (46-116) U/L Troponin I < 0.050 (0.000-0.056) ng/mL Total Protein 6.8 (6.4-8.2) g/dL Albumin 3.2 L (3.4-5.0) g/dL Globulin 3.6 (2.6-4.0) g/dL Albumin/Globulin Ratio 0.9 (0.9-1.6) Triglycerides (0-200) mg/dL Cholesterol (50-200) mg/dL LDL Cholesterol, Calc (60-180) mg/dL VLDL Cholesterol (5-55) mg/dL HDL Cholesterol (40-60) mg/dL Cholesterol/HDL Ratio (3.3-6.0) Lipase 117 (73-393) U/L TSH 3rd Generation (0.36-3.74) uIU/mL Urine Color Urine Appearance Urine pH (5.0-8.0) Ur Specific [place] (1.001-1.035) Urine Protein (NEGATIVE) mg/dL Urine Glucose (UA) (NEGATIVE) mg/dL Urine Ketones (NEGATIVE) mg/dL Urine Occult Blood (NEGATIVE) Urine Nitrite (NEGATIVE) Urine Bilirubin (NEGATIVE) Urine Ictotest Urine Urobilinogen (<2.0) EU/dL Ur Leukocyte Esterase (NEGATIVE) Urine RBC (0-2/HPF) Urine WBC (0-5/HPF) Ur Epithelial Cells (NONE-FEW) Ur Renal Epithelial Cell Amorphous Sediment (NEGATIVE) Urine Bacteria (NEGATIVE) Fine Granular Casts (NEGATIVE) 03/24/19 03/24/19 03/24/19 Range/Units 01:40 01:40 06:30 WBC (4.0-11.0) K/uL RBC (4.50-5.90) M/uL Hgb (13.0-17.0) g/dL Hct (38.0-50.0) % MCV (80.0-98.0) fL MCH (27.0-32.0) pg MCHC (31.0-37.0) g/dL RDW Std Deviation (28.0-62.0) fl RDW Coeff of Kiersten (11.0-15.0) % Plt Count (150-400) K/uL MPV (7.40-12.00) fL Neut % (Auto) (48.0-80.0) % Lymph % (Auto) (16.0-40.0) % [place] % (Auto) (0.0-15.0) % Eos % (Auto) (0.0-7.0) % Baso % (Auto) (0.0-1.5) % Neut # (Auto) (1.4-5.7) K/uL Lymph # (Auto) (0.6-2.4) K/uL [place] # (Auto) (0.0-0.8) K/uL Eos # (Auto) (0.0-0.7) K/uL Baso # (Auto) (0.0-0.1) K/uL Sodium (136-148) mmol/L Potassium (3.5-5.1) mmol/L Chloride (98-107) mmol/L Carbon Dioxide (21.0-32.0) mmol/L BUN (7.0-18.0) mg/dL Creatinine (0.8-1.3) mg/dL Est Cr Clr Drug Dosing mL/min Estimated GFR (MDRD) ml/min Glucose (74-106) mg/dL POC Glucose (60-110) mg/dL Hemoglobin A1c 7.1 H (4.5-6.2) % Calcium (8.5-10.1) mg/dL Magnesium (1.8-2.4) mg/dL Iron 117 (50-175) ug/dL TIBC 340 (250-450) ug/dL % Saturation 34.41 (20-55) % Ferritin 22 L (26-388) ng/mL Total Bilirubin (0.2-1.0) mg/dL AST (15-37) IU/L ALT (14-63) IU/L Alkaline Phosphatase (46-116) U/L Troponin I (0.000-0.056) ng/mL Total Protein (6.4-8.2) g/dL Albumin (3.4-5.0) g/dL Globulin (2.6-4.0) g/dL Albumin/Globulin Ratio (0.9-1.6) Triglycerides 240 H (0-200) mg/dL Cholesterol 138 (50-200) mg/dL LDL Cholesterol, Calc 42 L (60-180) mg/dL VLDL Cholesterol 48 (5-55) mg/dL HDL Cholesterol 48 (40-60) mg/dL Cholesterol/HDL Ratio 2.9 L (3.3-6.0) Lipase (73-393) U/L TSH 3rd Generation 2.38 (0.36-3.74) uIU/mL Urine Color Urine Appearance Urine pH (5.0-8.0) Ur Specific [place] (1.001-1.035) Urine Protein (NEGATIVE) mg/dL Urine Glucose (UA) (NEGATIVE) mg/dL Urine Ketones (NEGATIVE) mg/dL Urine Occult Blood (NEGATIVE) Urine Nitrite (NEGATIVE) Urine Bilirubin (NEGATIVE) Urine Ictotest Urine Urobilinogen (<2.0) EU/dL Ur Leukocyte Esterase (NEGATIVE) Urine RBC (0-2/HPF) Urine WBC (0-5/HPF) Ur Epithelial Cells (NONE-FEW) Ur Renal Epithelial Cell Amorphous Sediment (NEGATIVE) Urine Bacteria (NEGATIVE) Fine Granular Casts (NEGATIVE) 03/24/19 03/24/19 03/24/19 Range/Units 08:03 08:03 08:15 WBC (4.0-11.0) K/uL RBC (4.50-5.90) M/uL Hgb (13.0-17.0) g/dL Hct (38.0-50.0) % MCV (80.0-98.0) fL MCH (27.0-32.0) pg MCHC (31.0-37.0) g/dL RDW Std Deviation (28.0-62.0) fl RDW Coeff of Kiersten (11.0-15.0) % Plt Count (150-400) K/uL MPV (7.40-12.00) fL Neut % (Auto) (48.0-80.0) % Lymph % (Auto) (16.0-40.0) % [place] % (Auto) (0.0-15.0) % Eos % (Auto) (0.0-7.0) % Baso % (Auto) (0.0-1.5) % Neut # (Auto) (1.4-5.7) K/uL Lymph # (Auto) (0.6-2.4) K/uL [place] # (Auto) (0.0-0.8) K/uL Eos # (Auto) (0.0-0.7) K/uL Baso # (Auto) (0.0-0.1) K/uL Sodium (136-148) mmol/L Potassium (3.5-5.1) mmol/L Chloride (98-107) mmol/L Carbon Dioxide (21.0-32.0) mmol/L BUN (7.0-18.0) mg/dL Creatinine (0.8-1.3) mg/dL Est Cr Clr Drug Dosing mL/min Estimated GFR (MDRD) ml/min Glucose (74-106) mg/dL POC Glucose 158 H (60-110) mg/dL Hemoglobin A1c (4.5-6.2) % Calcium (8.5-10.1) mg/dL Magnesium (1.8-2.4) mg/dL Iron (50-175) ug/dL TIBC (250-450) ug/dL % Saturation (20-55) % Ferritin (26-388) ng/mL Total Bilirubin (0.2-1.0) mg/dL AST (15-37) IU/L ALT (14-63) IU/L Alkaline Phosphatase (46-116) U/L Troponin I < 0.050 (0.000-0.056) ng/mL Total Protein (6.4-8.2) g/dL Albumin (3.4-5.0) g/dL Globulin (2.6-4.0) g/dL Albumin/Globulin Ratio (0.9-1.6) Triglycerides (0-200) mg/dL Cholesterol (50-200) mg/dL LDL Cholesterol, Calc (60-180) mg/dL VLDL Cholesterol (5-55) mg/dL HDL Cholesterol (40-60) mg/dL Cholesterol/HDL Ratio (3.3-6.0) Lipase (73-393) U/L TSH 3rd Generation (0.36-3.74) uIU/mL Urine Color DARK YELLOW Urine Appearance HAZY Urine pH 5.0 (5.0-8.0) Ur Specific [place] >= 1.030 (1.001-1.035) Urine Protein 30 H (NEGATIVE) mg/dL Urine Glucose (UA) 100 H (NEGATIVE) mg/dL Urine Ketones 15 H (NEGATIVE) mg/dL Urine Occult Blood NEGATIVE (NEGATIVE) Urine Nitrite NEGATIVE (NEGATIVE) Urine Bilirubin SMALL H (NEGATIVE) Urine Ictotest NEGATIVE Urine Urobilinogen 0.2 (<2.0) EU/dL Ur Leukocyte Esterase NEGATIVE (NEGATIVE) Urine RBC 0-2 (0-2/HPF) Urine WBC 0-4 (0-5/HPF) Ur Epithelial Cells RARE (NONE-FEW) Ur Renal Epithelial Cell RARE Amorphous Sediment LIGHT (NEGATIVE) Urine Bacteria FEW (NEGATIVE) Fine Granular Casts 0-3 (NEGATIVE) Med Orders - Current: Current Medications Sodium Chloride (Normal Saline) 1,000 mls @ 125 mls/hr IV STAT [facility] Last Admin: 03/24/19 00:36 Dose: 125 mls/hr Diltiazem HCl 100 mg/ Sodium (Chloride) 100 mls @ 4.167 mls/hr IV ASDIRECTED MANASA; Protocol Insulin Aspart (Novolog) 0 unit SUBCUT TIDAC [facility]; Protocol Last Admin: 03/24/19 08:12 Dose: 1 unit Pantoprazole Sodium (Protonix) 40 mg PO DAILY [facility] Last Admin: 03/24/19 08:12 Dose: 40 mg Metformin 500 Mg Tab 1,000 each PO DAILY@1200 MANASA Rivaroxaban (Xarelto) 20 mg PO DAILY@1730 [facility] Simvastatin (Zocor) 80 mg PO BEDTIME MANASA Discontinued Medications Diltiazem HCl (Diltiazem) 20 mg IVPUSH ONETIME ONE Stop: 03/24/19 00:24 Last Admin: 03/24/19 00:30 Dose: 20 mg Diltiazem HCl (Cardizem Cd) 120 mg PO DAILY MANASA Last Admin: 03/24/19 10:05 Dose: Not Given Sodium Chloride (Normal Saline) Confirm Administered Dose 100 mls @ as directed .ROUTE .STK-MED ONE Stop: 03/24/19 00:58 Last Admin: 03/24/19 01:08 Dose: Not Given Sodium Chloride (Normal Saline) Confirm Administered Dose 100 mls @ as directed .ROUTE .STK-MED ONE Stop: 03/24/19 00:59 Last Admin: 03/24/19 01:08 Dose: Not Given Diltiazem HCl 100 mg/ Sodium (Chloride) 120 mls @ 5 mls/hr IV ASDIRECTED MANASA; Protocol Magnesium Sulfate 2 gm/ Premix 50 mls @ 25 mls/hr IV ONETIME ONE Stop: 03/24/19 09:21 Last Admin: 03/24/19 08:10 Dose: 25 mls/hr Influenza Virus Vaccine (Pharmacy To Dose - Influenza Vaccine) 1 each IM ONETIME ONE Stop: 03/24/19 09:01 Influenza Virus Vaccine (Fluzone High-Dose 2018-20 Syringe) 180 mcg IM .ONCE ONE Stop: 03/24/19 08:46 Last Admin: 03/24/19 10:03 Dose: 180 mcg Midazolam HCl (Versed 1 Mg/Ml) 2 mg IVPUSH ONETIME ONE Stop: 03/24/19 02:39 Last Admin: 03/24/19 02:44 Dose: 2 mg Morphine Sulfate (Morphine) 2 mg IVPUSH ONETIME ONE Stop: 03/24/19 02:39 Last Admin: 03/24/19 02:43 Dose: 2 mg Pneumococcal Polyvalent Vaccine (Pneumovax 23) 0.5 ml IM .ONCE ONE Stop: 03/24/19 09:31 Last Admin: 03/24/19 10:05 Dose: 0.5 ml
[2019-03-24] MEDS ORDERED: metFORMIN 500 MG Tab PO SCH (12:00)
[2019-03-24] MEDS ORDERED: Rivaroxaban 10 MG Tab PO SCH (17:30)
[2019-03-24] MEDS ORDERED: Simvastatin 40 MG Tab PO SCH (21:00)
--- NOTE | 2019-03-25 15:16 | ECHO ---
The echocardiogram report can be seen in this patient's EMR (Electronic Medical Record) in the REPORTS section. The echocardiogram report has also been scanned into PACS and can be seen there as well. CATHERINE
== END 2019-03-24 15:40 | disposition home or self-care (01) ==
LOC: MW.ED 00:21 → MW.ICU 03:27
PROVIDERS: ADMIT Internal Medicine; ATTEND Internal Medicine
DX: I48.91 Unspecified atrial fibrillation (principal); E78.00 Pure hypercholesterolemia, unspecified; K21.9 Gastro-esophageal reflux disease without esophagitis; I10 Essential (primary) hypertension; E11.9 Type 2 diabetes mellitus without complications; E66.9 Obesity, unspecified; Z79.899 Other long term (current) drug therapy; Z79.82 Long term (current) use of aspirin; Z79.01 Long term (current) use of anticoagulants
CPT/HCPCS: 36415; 71045; 80053; 80061; 81001; 82728; 82962; 83036; 83550; 83690; 83735; 84443; 84484; 85025; 90662; 90732; 93005; 93306; 96361; 96365; 96366; 96367; 96375; 96376; 99285; A9270; G0008; G0009; G0378; J1815; J2250; J2270; J3475; J3490; J7040; 99283

== ENCOUNTER 2019-03-25 18:42 | Inpatient (IN) | payer MEDICARE, OTHER ==
[2019-03-25] MEDS ORDERED: Sodium Chloride 0.9% 10 ML Syringe FLUSH PRN (18:51)
[2019-03-25] MEDS ORDERED: Sodium Chloride 0.9% 2.5 ML Syringe FLUSH PRN (18:51)
--- NOTE | 2019-03-25 18:51 | EDM.PDOC ---
ED HPI GENERAL MEDICAL PROBLEM - General Chief Complaint: Chest Pain Stated Complaint: A INGA, SOB Time Seen by Provider: 03/25/19 18:50 Source of Information: Reports: Patient History Limitations: Reports: No Limitations - History of Present Illness INITIAL COMMENTS - FREE TEXT/NARRATIVE: HISTORY AND PHYSICAL: History of present illness: Patient is an 83-year-old male presents to the ED via private vehicle for atrial fibrillation with RVR. Patient was admitted to the hospital yesterday after coming to the ED with A. fib and RVR. Patient had required cardioversion with 50 joules. He was admitted and discharged home in normal sinus rhythm today. He did see Dr. Joe this afternoon but had not started his medication for rate control. Patient reports chest pain 1 hour prior to arrival to the ED. He took 2 sublingual nitros without improvement in pain. Review of systems: As per history of present illness and below otherwise all systems reviewed and negative. Past medical history: As per history of present illness and as reviewed below otherwise noncontributory. Surgical history: As per history of present illness and as reviewed below otherwise noncontributory. Social history: No reported history of drug or alcohol abuse. Family history: As per history of present illness and as reviewed below otherwise noncontributory. Physical exam: General: Patient sitting comfortably in no acute distress and nontoxic appearing HEENT: Atraumatic, normocephalic, pupils reactive, negative for conjunctival pallor or scleral icterus, mucous membranes moist, throat clear, neck supple, nontender, trachea midline. No meningeal signs. Lungs: Clear to auscultation, breath sounds equal bilaterally, chest nontender. Heart: S1S2, regular, negative for clicks, rubs, or overt murmur. Abdomen: Soft, nondistended, nontender. Negative for masses or hepatosplenomegaly. Negative for costovertebral tenderness. No rigidity, rebound , guarding. Pelvis: Stable nontender. Genitourinary: Deferred. Rectal: Deferred. Extremities: Atraumatic, negative for cords or calf pain. Neurovascular unremarkable. Neuro: Awake, alert, oriented. Cranial nerves II through XII unremarkable. Cerebellum unremarkable. Motor and sensory unremarkable throughout. Exam nonfocal. Notes: Patient had improvement in chest pain after second dose of diltiazem but rate still in 150s. Dr. Lockett and Dr. Marte involved in care of patient. He was cardioverted in ED with 50 joules to normal sinus rhythm. Diagnostics: CBC, CMP, troponin, EKG, CXR, PT/INR Therapeutics: 25mg diltiazem 20mg diltiazem Prescriptions: Impression: ATrial fibrillation with RVR Plan: Patient admitted to ICU on telemetry Definitive disposition and diagnosis as appropriate pending reevaluation and review of above. Chest Pain Score (Numeric/FACES): 8 - Related Data Allergies Allergy/AdvReac Type Severity Reaction Status Date / Time diltiazem Allergy Hives Verified 03/26/19 00:18 Home Meds: Home Meds Ferrous Sulfate [Iron] 1 tab PO DAILY 05/11/17 [History] Pantoprazole [ProTONIX] 40 mg PO DAILY 05/11/17 [History] Simvastatin [Zocor] 80 tab PO DAILY 05/11/17 [History] metFORMIN HCl [Metformin HCl] 1,000 mg PO DAILY 05/11/17 [History] Rivaroxaban [Xarelto] 20 mg PO DAILY 03/24/19 [History] Past Medical History Cardiovascular History: Reports: Afib, Heart Murmur, High Cholesterol, Hypertension Respiratory History: Reports: Other (See Below) Other Respiratory History: Home O2 @ 2.5LPM PRN- used with altitude Gastrointestinal History: Reports: GERD Neurological History: Reports: TIA Psychiatric History: Reports: None Endocrine/Metabolic History: Reports: Diabetes, Type II, Obesity/BMI 30+ - Infectious Disease History Infectious Disease History: Reports: Chicken Pox, Measles, Mumps, Shingles - Past Surgical History Cardiovascular Surgical History: Reports: None GI Surgical History: Reports: Appendectomy, Cholecystectomy, Hernia, Abdominal 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 ED EXAM, GENERAL - Physical Exam Exam: See Below (see dictation) Course - Vital Signs Last Recorded V/S: Last Vital Signs Temp 96.3 F 03/26/19 20:00 Pulse 81 03/25/19 21:15 Resp 19 03/26/19 21:00 BP 113/54 L 03/26/19 21:00 Pulse Ox 94 L 03/26/19 21:00 - Orders/Labs/Meds Orders: Medication Orders Sodium Chloride (Normal Saline) 1,000 mls @ 999 mls/hr IV ASDIRECTED [facility] Last Admin: 03/25/19 20:39 Dose: 999 mls/hr Amiodarone HCl/Dextrose (Nexterone In Dextrose 360 Mg/200 Ml) 360 mg in 200 mls @ 16.667 mls/hr IV ASDIRECTED [facility]; Protocol Stop: 03/28/19 01:46 Last Admin: 03/26/19 17:48 Dose: 0.5 mg/min, 16.667 mls/hr Metformin HCl (Glucophage) 1,000 mg PO DAILY@0830 [facility] Last Admin: 03/26/19 08:32 Dose: 1,000 mg Pantoprazole Sodium (Protonix) 40 mg PO DAILY [facility] Last Admin: 03/26/19 09:15 Dose: 40 mg Rivaroxaban (Xarelto) 20 mg PO DAILY [facility] Last Admin: 03/26/19 09:15 Dose: 20 mg Simvastatin (Zocor) 80 mg PO BEDTIME [facility] Last Admin: 03/26/19 20:07 Dose: 80 mg Sodium Chloride (Saline Flush) 10 ml FLUSH ASDIRECTED PRN PRN Reason: Keep Vein Open Sodium Chloride (Saline Flush) 2.5 ml FLUSH ASDIRECTED PRN PRN Reason: Keep Vein Open Verapamil HCl (Calan Sr) 180 mg PO DAILY [facility] Last Admin: 03/26/19 11:47 Dose: 180 mg Labs: Laboratory Tests 03/25/19 03/25/19 03/25/19 Range/Units 18:50 18:50 18:50 WBC 8.05 (4.0-11.0) K/uL RBC 3.45 L (4.50-5.90) M/uL Hgb 10.8 L (13.0-17.0) g/dL Hct 34.7 L (38.0-50.0) % MCV 100.6 H (80.0-98.0) fL MCH 31.3 (27.0-32.0) pg MCHC 31.1 (31.0-37.0) g/dL RDW Std Deviation 50.1 (28.0-62.0) fl RDW Coeff of Kiersten 14 (11.0-15.0) % Plt Count 142 L (150-400) K/uL MPV 10.30 (7.40-12.00) fL Neut % (Auto) 72.0 (48.0-80.0) % Lymph % (Auto) 18.0 (16.0-40.0) % [place] % (Auto) 7.7 (0.0-15.0) % Eos % (Auto) 2.1 (0.0-7.0) % Baso % (Auto) 0.2 (0.0-1.5) % Neut # (Auto) 5.8 H (1.4-5.7) K/uL Lymph # (Auto) 1.5 (0.6-2.4) K/uL [place] # (Auto) 0.6 (0.0-0.8) K/uL Eos # (Auto) 0.2 (0.0-0.7) K/uL Baso # (Auto) 0.0 (0.0-0.1) K/uL Nucleated RBC % 0.0 /100WBC Nucleated RBCs # 0 K/uL INR 1.13 Sodium 140 (136-148) mmol/L Potassium 4.0 (3.5-5.1) mmol/L Chloride 102 (98-107) mmol/L Carbon Dioxide 27.8 (21.0-32.0) mmol/L BUN 17 (7.0-18.0) mg/dL Creatinine 1.2 (0.8-1.3) mg/dL Est Cr Clr Drug Dosing TNP Estimated GFR (MDRD) 57.8 ml/min Glucose 257 H (74-106) mg/dL Calcium 8.4 L (8.5-10.1) mg/dL Total Bilirubin 0.3 (0.2-1.0) mg/dL AST 9 L (15-37) IU/L ALT 17 (14-63) IU/L Alkaline Phosphatase 48 (46-116) U/L Troponin I < 0.050 (0.000-0.056) ng/mL Total Protein 6.5 (6.4-8.2) g/dL Albumin 3.2 L (3.4-5.0) g/dL Globulin 3.3 (2.6-4.0) g/dL Albumin/Globulin Ratio 1.0 (0.9-1.6) Meds: Medications Generic Name Dose Route Start Last Admin Trade Name Freq PRN Reason Stop Dose Admin Sodium Chloride 1,000 mls @ 999 mls/hr 03/25/19 20:45 03/25/19 20:39 Normal Saline IV 999 mls/hr ASDIRECTED [facility] Administration Amiodarone HCl/Dextrose 360 mg in 200 mls @ 16.667 mls/hr 03/26/19 17:45 17:48 Nexterone In Dextrose 360 Mg/200 Ml IV 03/28/19 01:46 0.5 mg/min ASDIRECTED [facility] 16.667 mls/hr Administration Protocol 0.5 MG/MIN Metformin HCl 1,000 mg 03/26/19 08:30 03/26/19 08:32 Glucophage PO 1,000 mg DAILY@0830 [facility] Administration Pantoprazole Sodium 40 mg 03/26/19 09:00 03/26/19 09:15 Protonix PO 40 mg DAILY [facility] Administration Rivaroxaban 20 mg 03/26/19 09:00 03/26/19 09:15 Xarelto PO 20 mg DAILY [facility] Administration Simvastatin 80 mg 03/26/19 21:00 03/26/19 20:07 Zocor PO 80 mg BEDTIME [facility] Administration Sodium Chloride 10 ml 03/25/19 18:51 Saline Flush FLUSH ASDIRECTED PRN Keep Vein Open Sodium Chloride 2.5 ml 03/25/19 18:51 Saline Flush FLUSH ASDIRECTED PRN Keep Vein Open Verapamil HCl 180 mg 03/26/19 11:15 03/26/19 11:47 Calan Sr PO 180 mg DAILY [facility] Administration Discontinued Medications Generic Name Dose Route Start Last Admin Trade Name Sung PRN Reason Stop Dose Admin Amiodarone HCl 200 mg 03/25/19 21:15 03/26/19 09:15 Cordarone PO 200 mg BID [facility] Administration Diltiazem HCl 25 mg 03/25/19 18:52 03/25/19 19:02 Diltiazem IVPUSH 03/25/19 18:53 25 mg ONETIME ONE Administration Diltiazem HCl 20 mg 03/25/19 19:18 03/25/19 19:28 Diltiazem IVPUSH 03/25/19 19:19 20 mg ONETIME ONE Administration Diphenhydramine HCl 25 mg 03/25/19 19:33 03/25/19 19:37 Benadryl IVPUSH 03/25/19 19:34 25 mg ONETIME ONE Administration Diphenhydramine HCl Confirm 03/25/19 19:34 03/25/19 19:47 Benadryl Administered 03/25/19 19:35 Not Given Dose 50 mg .ROUTE .STK-MED ONE Fentanyl Confirm 03/25/19 20:24 03/25/19 21:01 Sublimaze Administered 03/25/19 20:25 Not Given Dose 100 mcg .ROUTE .STK-MED ONE Fentanyl 50 mcg 03/25/19 20:59 03/25/19 21:05 Fentanyl IVPUSH 03/25/19 21:00 50 mcg ONETIME ONE Administration Sodium Chloride 1,000 mls @ 999 mls/hr 03/25/19 19:15 03/25/19 19:27 Normal Saline IV 03/25/19 20:15 999 mls/hr STAT ONE Administration Propofol Confirm 03/25/19 20:24 03/25/19 21:01 Diprivan 50 Ml Administered 03/25/19 20:25 Not Given Dose 50 mls @ as directed .ROUTE .STK-MED ONE Amiodarone HCl/Dextrose 360 mg in 200 mls @ 33.333 mls/hr 03/26/19 11:00 11:59 Nexterone In Dextrose 360 Mg/200 Ml IV 1 mg/min ASDIRECTED [facility] 33.333 mls/hr Infusion Protocol 1 MG/MIN Amiodarone HCl/Dextrose 150 mg 100 mls @ 600 mls/hr 03/26/19 11:30 03/26/19 11:42 / Premix IV 03/26/19 11:39 600 mls/hr ONETIME ONE Administration Protocol Lidocaine HCl Confirm 03/25/19 20:26 03/25/19 21:01 Xylocaine 1% Administered 03/25/19 20:27 Not Given Dose 50 ml .ROUTE .STK-MED ONE Lidocaine HCl 10 ml 03/25/19 21:00 03/25/19 21:04 Xylocaine 1% INJECT 03/25/19 21:01 10 ml ONETIME ONE Administration Propofol 60 mg 03/25/19 20:58 03/25/19 21:04 Diprivan 20 Ml IVPUSH 03/25/19 20:59 60 mg ONETIME ONE Administration Simvastatin 800 mg 03/26/19 09:00 Zocor PO DAILY [facility] Simvastatin 80 mg 03/26/19 09:00 03/26/19 10:33 Zocor PO Not Given DAILY [facility] Departure - Departure Time of Disposition: 21:33 Disposition: Admitted As Inpatient 66 Condition: Good Clinical Impression: Atrial fibrillation with rapid ventricular response Clinical Impression: (Ruled Out): Atrial fibrillation with controlled ventricular rate
[2019-03-25] MEDS ORDERED: Diltiazem 25 MG/5 ML SDV IVPUSH ONE ×2 (18:52→19:18)
[2019-03-25] MEDS ORDERED: Sodium Chloride 0.9% 1,000 ML IV ONE (19:15)
--- NOTE | 2019-03-25 19:24 | CR ---
Indication: Chest pain. Technique: Single AP portable view of the chest was obtained. Comparison: March 24, 2019. Findings: Heart is enlarged. The lungs are clear. No infiltrate, pleural effusion, pneumothorax is identified. Impression: No acute cardiopulmonary process. Dictated by Chen Treviño MD @ Mar 25 2019 7:22PM Signed by Dr. Chen Treviño @ Mar 25 2019 7:22PM
[2019-03-25 19:33] LABS: BLOOD UREA NITROGEN,BUN 17 mg/dL (7.0-18.0); CARBON DIOXIDE,CO2 27.8 mmol/L (21.0-32.0); CHLORIDE,CL 102 mmol/L (98-107); GLUCOSE RANDOM 257 mg/dL (74-106); SODIUM,NA 140 mmol/L (136-148)
[2019-03-25] MEDS ORDERED: diphenhydrAMINE 50 MG/ML SDV IVPUSH ONE (19:33)
[2019-03-25] MEDS ORDERED: diphenhydrAMINE 50 MG/ML SDV ONE (19:34)
[2019-03-25] MEDS ORDERED: fentaNYL 100 MCG/2 ML SDV ONE (20:24)
[2019-03-25] MEDS ORDERED: Lidocaine 1% 50 ML MDV ONE (20:26)
[2019-03-25] MEDS ORDERED: Sodium Chloride 0.9% 1,000 ML IV SCH (20:45)
--- NOTE | 2019-03-25 20:48 | PCM.PREANE ---
Preanesthetic Assessment - Anesthesia/Transfusion/Family Hx Anesthesia History: Prior Anesthesia Without Reaction Family History of Anesthesia Reaction: No Transfusion History: Prior Transfusion Without Reaction - Review of Systems General: No Symptoms Pulmonary: No Symptoms Cardiovascular: Chest Pain, Palpitations Gastrointestinal: No Symptoms Neurological: No Symptoms Other: Reports: None - Physical Assessment NPO Status Date: 03/25/19 NPO Status Time: 18:00 Vital Signs: Last Vital Signs Temp 96.6 F 03/25/19 19:46 Pulse 87 03/25/19 20:33 Resp 18 03/25/19 20:33 BP 106/63 03/25/19 20:33 Pulse Ox 97 03/25/19 20:42 ASA Class: 3E Mental Status: Alert & Oriented x3 Dentition: Reports: Implants Thyro-Mental Finger Breadths: 3 Mouth Opening Finger Breadths: 3 ROM/Head Extension: Limited/Partial Lungs: Clear to Auscultation, Normal Respiratory Effort Cardiovascular: Irregular Rhythm, Tachycardia - Lab Values: Laboratory Last Values WBC 8.05 K/uL (4.0-11.0) 03/25/19 18:50 RBC 3.45 M/uL (4.50-5.90) L 03/25/19 18:50 Hgb 10.8 g/dL (13.0-17.0) L 03/25/19 18:50 Hct 34.7 % (38.0-50.0) L 03/25/19 18:50 MCV 100.6 fL (80.0-98.0) H 03/25/19 18:50 MCH 31.3 pg (27.0-32.0) 03/25/19 18:50 MCHC 31.1 g/dL (31.0-37.0) 03/25/19 18:50 RDW Std Deviation 50.1 fl (28.0-62.0) 03/25/19 18:50 RDW Coeff of Kiersten 14 % (11.0-15.0) 03/25/19 18:50 Plt Count 142 K/uL (150-400) L 03/25/19 18:50 MPV 10.30 fL (7.40-12.00) 03/25/19 18:50 Neut % (Auto) 72.0 % (48.0-80.0) 03/25/19 18:50 Lymph % (Auto) 18.0 % (16.0-40.0) 03/25/19 18:50 [place] % (Auto) 7.7 % (0.0-15.0) 03/25/19 18:50 Eos % (Auto) 2.1 % (0.0-7.0) 03/25/19 18:50 Baso % (Auto) 0.2 % (0.0-1.5) 03/25/19 18:50 Neut # (Auto) 5.8 K/uL (1.4-5.7) H 03/25/19 18:50 Lymph # (Auto) 1.5 K/uL (0.6-2.4) 03/25/19 18:50 [place] # (Auto) 0.6 K/uL (0.0-0.8) 03/25/19 18:50 Eos # (Auto) 0.2 K/uL (0.0-0.7) 03/25/19 18:50 Baso # (Auto) 0.0 K/uL (0.0-0.1) 03/25/19 18:50 Nucleated RBC % 0.0 /100WBC 03/25/19 18:50 Nucleated RBCs # 0 K/uL 03/25/19 18:50 INR 1.13 03/25/19 18:50 Sodium 140 mmol/L (136-148) 03/25/19 18:50 Potassium 4.0 mmol/L (3.5-5.1) 03/25/19 18:50 Chloride 102 mmol/L (98-107) 03/25/19 18:50 Carbon Dioxide 27.8 mmol/L (21.0-32.0) 03/25/19 18:50 BUN 17 mg/dL (7.0-18.0) 03/25/19 18:50 Creatinine 1.2 mg/dL (0.8-1.3) 03/25/19 18:50 Est Cr Clr Drug Dosing TNP 03/25/19 18:50 Estimated GFR (MDRD) 57.8 ml/min 03/25/19 18:50 Glucose 257 mg/dL (74-106) H 03/25/19 18:50 Calcium 8.4 mg/dL (8.5-10.1) L 03/25/19 18:50 Total Bilirubin 0.3 mg/dL (0.2-1.0) 03/25/19 18:50 AST 9 IU/L (15-37) L 03/25/19 18:50 ALT 17 IU/L (14-63) 03/25/19 18:50 Alkaline Phosphatase 48 U/L (46-116) 03/25/19 18:50 Troponin I < 0.050 ng/mL (0.000-0.056) 03/25/19 18:50 Total Protein 6.5 g/dL (6.4-8.2) 03/25/19 18:50 Albumin 3.2 g/dL (3.4-5.0) L 03/25/19 18:50 Globulin 3.3 g/dL (2.6-4.0) 03/25/19 18:50 Albumin/Globulin Ratio 1.0 (0.9-1.6) 03/25/19 18:50 - Allergies Allergies/Adverse Reactions: Allergies Allergy/AdvReac Type Severity Reaction Status Date / Time No Known Allergies Allergy Verified 03/25/19 19:45 - Acknowledgements Anesthesia Type Planned: MAC Pt an Appropriate Candidate for the Planned Anesthesia: Yes Alternatives and Risks of Anesthesia Discussed w Pt/Guardian: Yes Pt/Guardian Understands and Agrees with Anesthesia Plan: Yes PreAnesthesia Questionnaire HEENT History: Reports: None Cardiovascular History: Reports: Afib, Heart Murmur, High Cholesterol, Hypertension, Other (See Below) (Cardioversion 2019 x 2) Respiratory History: Reports: Other (See Below) Other Respiratory History: Home O2 @ 2.5LPM PRN- used with altitude Gastrointestinal History: Reports: GERD Genitourinary History: Reports: None Musculoskeletal History: Reports: None Neurological History: Reports: TIA Psychiatric History: Reports: None Endocrine/Metabolic History: Reports: Diabetes, Type II, Obesity/BMI 30+ Hematologic History: Reports: None Immunologic History: Reports: None Oncologic (Cancer) History: Reports: None Dermatologic History: Reports: None - Infectious Disease History Infectious Disease History: Reports: Chicken Pox, Measles, Mumps, Shingles - Past Surgical History Cardiovascular Surgical History: Reports: None GI Surgical History: Reports: Appendectomy, Cholecystectomy, Hernia, Abdominal 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 - SUBSTANCE USE Second Hand Smoke Exposure: No Recreational Drug Use History: No - HOME MEDS Home Medications: Home Meds Ferrous Sulfate [Iron] 1 tab PO DAILY 05/11/17 [History] Pantoprazole [ProTONIX] 40 mg PO DAILY 05/11/17 [History] Simvastatin [Zocor] 80 tab PO DAILY 05/11/17 [History] metFORMIN HCl [Metformin HCl] 1,000 mg PO DAILY 05/11/17 [History] Rivaroxaban [Xarelto] 20 mg PO DAILY 03/24/19 [History] - CURRENT (IN HOUSE) MEDS Current Meds: Current Medications Sodium Chloride (Normal Saline) 1,000 mls @ 999 mls/hr IV ASDIRECTED [facility] Last Admin: 03/25/19 20:39 Dose: 999 mls/hr Sodium Chloride (Saline Flush) 10 ml FLUSH ASDIRECTED PRN PRN Reason: Keep Vein Open Sodium Chloride (Saline Flush) 2.5 ml FLUSH ASDIRECTED PRN PRN Reason: Keep Vein Open Discontinued Medications Diltiazem HCl (Diltiazem) 25 mg IVPUSH ONETIME ONE Stop: 03/25/19 18:53 Last Admin: 03/25/19 19:02 Dose: 25 mg Diltiazem HCl (Diltiazem) 20 mg IVPUSH ONETIME ONE Stop: 03/25/19 19:19 Last Admin: 03/25/19 19:28 Dose: 20 mg Diphenhydramine HCl (Benadryl) 25 mg IVPUSH ONETIME ONE Stop: 03/25/19 19:34 Last Admin: 03/25/19 19:37 Dose: 25 mg Diphenhydramine HCl (Benadryl) Confirm Administered Dose 50 mg .ROUTE .STK-MED ONE Stop: 03/25/19 19:35 Last Admin: 03/25/19 19:47 Dose: Not Given Fentanyl (Sublimaze) Confirm Administered Dose 100 mcg .ROUTE .STK-MED ONE Stop: 03/25/19 20:25 Sodium Chloride (Normal Saline) 1,000 mls @ 999 mls/hr IV STAT ONE Stop: 03/25/19 20:15 Last Admin: 03/25/19 19:27 Dose: 999 mls/hr Propofol (Diprivan 50 Ml) Confirm Administered Dose 50 mls @ as directed .ROUTE .STK-MED ONE Stop: 03/25/19 20:25 Lidocaine HCl (Xylocaine 1%) Confirm Administered Dose 50 ml .ROUTE .[facility] Stop: 03/25/19 20:27
[2019-03-25] MEDS ORDERED: Propofol 200 MG/20 ML SDV IVPUSH ONE (20:58)
[2019-03-25] MEDS ORDERED: fentaNYL 50 MCG/ML SDV IVPUSH ONE (20:59)
[2019-03-25] MEDS ORDERED: Lidocaine 1% 10 ML MDV INJECT ONE (21:00)
--- NOTE | 2019-03-25 21:03 | PCM.POSTAN ---
POST ANESTHESIA ASSESSMENT - MENTAL STATUS Mental Status: Alert, Oriented - VITAL SIGNS Vital Signs: Last Vital Signs Temp 96.6 F 03/25/19 19:46 Pulse 83 03/25/19 20:54 Resp 21 H 03/25/19 20:54 BP 117/66 03/25/19 20:54 Pulse Ox 94 L 03/25/19 20:54 - RESPIRATORY Respiratory Status: Respiratory Rate WNL, Airway Patent, O2 Saturation Stable, Supplemental Oxygen (4LPM via NC) - CARDIOVASCULAR CV Status: Pulse Rate WNL, Blood Pressure Stable - GASTROINTESTINAL GI Status: No Symptoms - PAIN Pain Score: 0 - POST OP HYDRATION Hydration Status: Adequate & Stable - OBSERVATIONS Free Text/Narrative:: Pt states he wears home O2, up to 3 LPM at [facility]. The patient is being admitted for observation, continuous central pulse oximetry has been ordered. Dr Marte made aware.
--- NOTE | 2019-03-25 21:19 | PCM.HP.2 ---
H&P History of Present Illness - General Date of Service: 03/25/19 Admit Problem/Dx: Admission Diagnosis/Problem Admission Diagnosis/Problem Atrial fibrillation with rapid ventricular response - History of Present Illness Initial Comments - Free Text/Narative: 83 yo male with pmh of DM and atrial fibrillation on Xarelto for two years. Patient has been admitted seven times in the past two years for a.fib. He has been on metoprolol on the past but this has been discontinued due to side effects of fatigue. He was admitted two days ago following an emergent cardioversion when he had chest pain with a.fib with RVR. He did converted to normal sinus rhythm and was monitored overnight and discharged yesterday. He saw Dr. Munoz today who prescribed him diltiazem which he has not taken yet. He presents tonight with chest discomfort palpitations and shortness of breath. He was noted to be in a.fib with RVR with HR in the 140s. He was given two doses of diltiazem with the second dose giving him hives. Due to his symptomatic a.fib he was cardioverted again successfully to normal sinus rhythm. Chest Pain Score (Numeric/FACES): 8 - Related Data Allergies/Adverse Reactions: Allergies Allergy/AdvReac Type Severity Reaction Status Date / Time diltiazem Allergy Hives Verified 03/26/19 00:18 Home Medications: Home Meds Ferrous Sulfate [Iron] 1 tab PO DAILY 05/11/17 [History] Pantoprazole [ProTONIX] 40 mg PO DAILY 05/11/17 [History] Simvastatin [Zocor] 80 tab PO DAILY 05/11/17 [History] metFORMIN HCl [Metformin HCl] 1,000 mg PO DAILY 05/11/17 [History] Rivaroxaban [Xarelto] 20 mg PO DAILY 03/24/19 [History] Past Medical History HEENT History: Reports: None Cardiovascular History: Reports: Afib, Heart Murmur, High Cholesterol, Hypertension, Other (See Below) (Cardioversion 2019 x 2) Respiratory History: Reports: Other (See Below) Other Respiratory History: Home O2 @ 2.5LPM PRN- used with altitude Gastrointestinal History: Reports: GERD Genitourinary History: Reports: None Musculoskeletal History: Reports: None Neurological History: Reports: TIA Psychiatric History: Reports: None Endocrine/Metabolic History: Reports: Diabetes, Type II, Obesity/BMI 30+ Hematologic History: Reports: None Immunologic History: Reports: None Oncologic (Cancer) History: Reports: None Dermatologic History: Reports: None - Infectious Disease History Infectious Disease History: Reports: Chicken Pox, Measles, Mumps, Shingles - Past Surgical History Cardiovascular Surgical History: Reports: None GI Surgical History: Reports: Appendectomy, Cholecystectomy, Hernia, Abdominal 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 Social & Family History - Family History Family Medical History: Noncontributory Cardiac: Reports: IN - Tobacco Use Smoking Status *Q: Never Smoker Second Hand Smoke Exposure: No - Caffeine Use Caffeine Use: Reports: Coffee - Recreational Drug Use Recreational Drug Use: No H&P Review of Systems - Review of Systems: Review Of Systems: ROS reveals no pertinent complaints other than HPI. Exam - Exam Exam: See Below - Vital Signs Vital Signs: Last Vital Signs Temp 35.9 C 03/25/19 19:46 Pulse 83 03/25/19 20:54 Resp 21 H 03/25/19 20:54 BP 117/66 03/25/19 20:54 Pulse Ox 94 L 03/25/19 20:54 - Exam General: Alert, Oriented HEENT: Mucosa Moist & [place] Neck: Supple Lungs: Clear to Auscultation, Normal Respiratory Effort Cardiovascular: Regular Rate, Regular Rhythm GI/Abdominal Exam: Soft, Non-Tender Extremities: Non-Tender, No Pedal Edema Skin: Warm, Dry, Intact - Patient Data Lab Results Last 24 hrs: Laboratory Results - last 24 hr 03/25/19 03/25/19 03/25/19 Range/Units 18:50 18:50 18:50 WBC 8.05 (4.0-11.0) K/uL RBC 3.45 L (4.50-5.90) M/uL Hgb 10.8 L (13.0-17.0) g/dL Hct 34.7 L (38.0-50.0) % MCV 100.6 H (80.0-98.0) fL MCH 31.3 (27.0-32.0) pg MCHC 31.1 (31.0-37.0) g/dL RDW Std Deviation 50.1 (28.0-62.0) fl RDW Coeff of Kiersten 14 (11.0-15.0) % Plt Count 142 L (150-400) K/uL MPV 10.30 (7.40-12.00) fL Neut % (Auto) 72.0 (48.0-80.0) % Lymph % (Auto) 18.0 (16.0-40.0) % [place] % (Auto) 7.7 (0.0-15.0) % Eos % (Auto) 2.1 (0.0-7.0) % Baso % (Auto) 0.2 (0.0-1.5) % Neut # (Auto) 5.8 H (1.4-5.7) K/uL Lymph # (Auto) 1.5 (0.6-2.4) K/uL [place] # (Auto) 0.6 (0.0-0.8) K/uL Eos # (Auto) 0.2 (0.0-0.7) K/uL Baso # (Auto) 0.0 (0.0-0.1) K/uL Nucleated RBC % 0.0 /100WBC Nucleated RBCs # 0 K/uL INR 1.13 Sodium 140 (136-148) mmol/L Potassium 4.0 (3.5-5.1) mmol/L Chloride 102 (98-107) mmol/L Carbon Dioxide 27.8 (21.0-32.0) mmol/L BUN 17 (7.0-18.0) mg/dL Creatinine 1.2 (0.8-1.3) mg/dL Est Cr Clr Drug Dosing TNP Estimated GFR (MDRD) 57.8 ml/min Glucose 257 H (74-106) mg/dL Calcium 8.4 L (8.5-10.1) mg/dL Total Bilirubin 0.3 (0.2-1.0) mg/dL AST 9 L (15-37) IU/L ALT 17 (14-63) IU/L Alkaline Phosphatase 48 (46-116) U/L Troponin I < 0.050 (0.000-0.056) ng/mL Total Protein 6.5 (6.4-8.2) g/dL Albumin 3.2 L (3.4-5.0) g/dL Globulin 3.3 (2.6-4.0) g/dL Albumin/Globulin Ratio 1.0 (0.9-1.6) Result Diagrams: 03/26/19 05:25 03/26/19 05:25 Problem List Initiated/Reviewed/Updated: Yes Orders Last 24hrs: Active Orders 24 hr Category Date Time Status Admission Status [Patient Status] [ADT] Stat ADT 03/25/19 20:58 Active Antiembolic Devices [RC] PER UNIT ROUTINE Care 03/25/19 21:10 Ordered Blood Glucose Check, Bedside [RC] TIDMEALS Care 03/25/19 21:09 Ordered Cardiac Monitoring [RC] . DIRECTED Care 03/25/19 18:51 Active EKG Documentation Completion [RC] STAT Care 03/25/19 18:51 Active Overnight Pulse Oximetry [RC] Click to Edit Care 03/25/19 20:56 Active Oxygen Therapy [RC] PRN Care 03/25/19 21:09 Ordered Pulse Oximetry [RC] ASDIRECTED Care 03/25/19 18:51 Active Up ad [place]in[place] [RC] ASDIRECTED Care 03/25/19 21:09 Ordered VTE/DVT Education [RC] PER UNIT ROUTINE Care 03/25/19 21:09 Ordered Vital Signs [RC] Q4H Care 03/25/19 21:09 Ordered [place] [employer] Diet [DIET] Diet 03/25/19 Breakfast Ordered BASIC METABOLIC PANEL,BMP [CHEM] AM Lab 03/26/19 05:11 Ordered CBC WITH AUTO DIFF [HEME] AM Lab 03/26/19 05:11 Ordered Amiodarone [Cordarone] Med 03/25/19 21:15 Ordered 200 mg PO BID Pantoprazole [ProTONIX] Med 03/26/19 09:00 Ordered 40 mg PO DAILY Simvastatin [Zocor] Med 03/26/19 09:00 Ordered 800 mg PO DAILY Sodium Chloride 0.9% [Normal Saline] 1,000 ml Med 03/25/19 20:45 Active IV ASDIRECTED Sodium Chloride 0.9% [Saline Flush] Med 03/25/19 18:51 Active 10 ml FLUSH ASDIRECTED PRN Sodium Chloride 0.9% [Saline Flush] Med 03/25/19 18:51 Active 2.5 ml FLUSH ASDIRECTED PRN metFORMIN HCl [Metformin HCl] Med 03/26/19 09:00 Ordered 1,000 mg PO DAILY Pulse Oximetry Continuous Monitoring [OM.PC] Routine Oth 03/25/19 20:56 Ordered Saline Lock Insert [OM.PC] Stat Oth 03/25/19 18:51 Ordered Sequential Compression Device [OM.PC] Per Unit Routine Oth 03/25/19 21:09 Ordered Resuscitation Status Routine Resus Stat 03/25/19 21:09 Ordered Medication Orders Amiodarone HCl (Cordarone) 200 mg PO BID MANASA Sodium Chloride (Normal Saline) 1,000 mls @ 999 mls/hr IV ASDIRECTED MANASA Last Admin: 03/25/19 20:39 Dose: 999 mls/hr Non-Formulary Medication (Metformin Hcl [Metformin Hcl]) 1,000 mg PO DAILY MANASA Pantoprazole Sodium (Protonix) 40 mg PO DAILY MANASA Simvastatin (Zocor) 800 mg PO DAILY MANASA Sodium Chloride (Saline Flush) 10 ml FLUSH ASDIRECTED PRN PRN Reason: Keep Vein Open Sodium Chloride (Saline Flush) 2.5 ml FLUSH ASDIRECTED PRN PRN Reason: Keep Vein Open Assessment/Plan Comment:: 83 yo male admitted following successful electrocardioversion for atrial fibrillation with RVR. We will monitor on telemetry in ICU. Due to recurrent atrial fibrillation and his adverse reactions to rate controlling medications we will start amiodarone.
[2019-03-25] MEDS: Amiodarone 200 MG Tab PO SCH (22:20)
--- NOTE | 2019-03-25 23:13 | PN ---
THC Physician - Brief Progress [id number]/22/2019 23:07[facility] Yaakov munoz, JOSE - [facility] - MWN ICUJUDY GRAJEDA.Date of Service 03/25/2019 23:07HPI/Events of Note Case discussed with RN. 83 year old M with previous afib, admitted with afib RVR, treated wi th cardizem drip and D/C cardioversion. Now in ICU for observation and awaiting cardio eval. Had de veloped hives after cardizem which is now off , and currently on amio PO and xaralto.77 121/61 95% Recs include: hemodynamic monitoring, amio PO/xaralto, cardio eval and echo when available, supplemen waldo O2 PRN, GI and DVT prophylaxis, monitor temps and WBCs, replace lytes as needed, glycemic monitor ing, pain control.Interventions Minor-Communication with other healthcare providers and/or familyElec tronically Signed by: ARTURO WAITE () on 03/25/2019 23:12
[2019-03-26 05:47] LABS: BLOOD UREA NITROGEN,BUN 16 mg/dL (7.0-18.0); CHLORIDE,CL 106 mmol/L (98-107); GLUCOSE RANDOM 146 mg/dL (74-106); POTASSIUM,K 4.4 mmol/L (3.5-5.1); SODIUM,NA 142 mmol/L (136-148)
--- NOTE | 2019-03-26 07:06 | PCM48HPAN ---
Post Anesthesia Note - EVALUATION WITHIN 48HRS OF ANESTHETIC Vital Signs in Normal Range: Yes Patient Participated in Evaluation: Yes Respiratory Function Stable: Yes Airway Patent: Yes Cardiovascular Function Stable: Yes Hydration Status Stable: Yes Pain Control Satisfactory: Yes Nausea and Vomiting Control Satisfactory: Yes Mental Status Recovered: Yes Vital Signs: Last Vital Signs Temp 98.1 F 03/26/19 03:00 Pulse 81 03/25/19 21:15 Resp 21 H 03/26/19 06:00 BP 137/54 L 03/26/19 06:00 Pulse Ox 95 03/26/19 06:00
[2019-03-26] MEDS ORDERED: metFORMIN 500 MG Tab PO SCH (08:30)
[2019-03-26] MEDS ORDERED: Simvastatin 10 MG Tab PO SCH ×2 (09:00)
[2019-03-26] MEDS: Amiodarone 200 MG Tab PO SCH (09:15)
[2019-03-26] MEDS: Pantoprazole 40 MG Tab.CR PO SCH (09:15)
[2019-03-26] MEDS: Rivaroxaban 10 MG Tab PO SCH (09:15)
[2019-03-26] MEDS ORDERED: Amiodarone In Dextrose,Iso-Osm 150 MG in Premix Bag 1 BAG IV ONE ×2 (11:30)
[2019-03-26] MEDS: Verapamil 180 MG Tab.ER PO SCH (11:47)
--- NOTE | 2019-03-26 13:17 | PN ---
THC Physician - Brief Progress [id number]/23/2019 13:12[facility] Yaakov munoz JOSE - MWN (RADHAN) - MWN [place] JUDY MaryDate of Service 03/26/2019 13:12HPI/Events of Note EICU progress note:83-year-old male with difficult to manage A. fib secondary to side effects of metoprolol and rate controlling medications of fatigue presents again with A. fib with RVR and em ergent cardioversion. Patient has been placed on amiodarone drip since cardioversion.On video screen monitor exam:83-year-old male no acute distressHeart rate 87 respiratory rate 15 SPO2 92% blood pres sure 140/77eICU assessment:A. fib with RVR status post cardioversion currently on amiodaroneChronic a trial fibrillation on Xarelto outpatientHypomagnesemiaDiabetes mellitus type 2ThrombocytopeniaMacrocy tosisObesity with elevated BMIOther chronic comorbiditieseICU recommendations:Follow TSH and liver la bs with amiodarone inductionReplete magnesium to greater than 2.0 and maintain potassium greater than 4.0Blood sugar controlCardiology recommendations and starting patient on amiodarone due to adverse e ffects of rate controlling medicationsRepeat cardio/echocardiogram at outside health facility seconda ry to difficult to obtain transthoracic echocardiogram on 03/25/2019Likely need for Definity of contr ast echocardiogramGI DVT prophylaxis with DVT prophylaxis provided by XareltoRecommend weight loss an d sleep study outpatientControl blood sugarsPlease call with any changes/recommendations that are nee dedInterventions Major-Arrhythmia - evaluation and managementMinor-Communication with other healthcar e providers and/or family, Routine modifications to care plan (e.g. PRN medications for pain, fever)E lectronically Signed by: IBIS LUIS) on 03/26/2019 13:16
--- NOTE | 2019-03-26 14:52 | CT ---
INDICATION: hypoxia Indication: Hypoxia. Technique: CT of the chest. No intravenous contrast. Coronal/sagittal reconstruction images. Comparison: Chest one view 03/25/2019, 03/24/2019. Findings: There are dense coronary artery calcifications or stents. This is best seen in the LAD on image 58, series 201. There is no pleural or pericardial effusion. There are nonenlarged lymph nodes seen at station 4R. Calcified granulomas are seen at station 7 and station 11L. Main pulmonary artery is dilated at 39 millimeters. Ascending thoracic aorta is dilated at 44 mm. The inferior thyroid gland is symmetric. The lung windows demonstrate no endobronchial mass. There is bibasilar dependent atelectasis. There is no suspicious pulmonary nodule. Apparent nodule on series 202, image 45, is likely a vessel. This measures 6-7 mm. There is no suspicious pulmonary nodule. There is no acute airspace disease. There is no pneumothorax. Evaluation of the upper abdomen demonstrates a right adrenal mass, which is well circumscribed. This measures 3.7 cm in AP dimension, and 7 Hounsfield units. This is compatible with an adenoma. There is no contralateral adrenal mass. There is no hydronephrosis. There is minor perinephric fat stranding. Calcified granulomas are present in the liver. Similar findings are present in the spleen. There is no pancreatic mass, pancreatic duct dilation, or glandular atrophy. Cholecystectomy. There is no upper abdominal lymphadenopathy or pneumoperitoneum. There is a well-circumscribed mass, left kidney, exophytic, which measures less than 20 Hounsfield units, is compatible with a benign cyst. This measures 5.6 cm on image 124, series 201. There is incidental colonic diverticulosis. The bone windows demonstrate spurring at the endplates of the thoracic spine. Vertebral body heights are maintained on sagittal reconstruction images. Manubrium and body of the sternum are intact. Impression: 1. No thoracic lymphadenopathy or acute airspace disease. 2. Apparent left upper lobe pulmonary nodule measuring 6-7 millimeters is most likely a vessel. This is seen on image 45, series 202. 3. There is no endobronchial mass, resorptive atelectasis, reticulation, honeycomb formation, or other evidence for architectural distortion. 4. Right adrenal mass meets imaging criteria for an adenoma. This does not require imaging follow up. Dictated by Madi Munguia MD @ 03/26/2019 2:51:18 PM Please note that all CT scans at this facility use dose modulation, iterative reconstruction, and/or weight-based dosing when appropriate to reduce radiation dose to as low as reasonably achievable. Dictated by: Madi Munguia MD @ 03/26/2019 14:51:29 (Electronically Signed)
--- NOTE | 2019-03-26 16:41 | PCM.PN ---
- General Info Date of Service: 03/26/19 Subjective Update: 83 y/o male with history of Afib. He was recently hospitalized for Afib with RVR on 03/24/19 requiring electrocardioversion with 50 J. He was discharged home rate controlled and sinus rhythm. He later follow-up with with cardiology the next day. He was started on Cardizem but patient did not berry picker prescription that day. Later that evening, patient started complaining of palpitations. He returned to the ER where he was in Afib with RVR. He was administered IV Cadizem but apparently he developed a rash after administering cardizem. So, he was electrocardioverted again with 50 J. He converted to sinus rhythm and was started on Amiodarone. Today, the patient denied any chest pain, dyspnea. No palpitations. Stated he felt much better. - Patient Data Vitals - Most Recent: Last Vital Signs Temp 36.7 C 03/26/19 16:00 Pulse 81 03/25/19 21:15 Resp 15 03/26/19 16:00 BP 116/65 03/26/19 16:00 Pulse Ox 95 03/26/19 16:00 Weight - Most Recent: 124.33 kg I&O - Last 24 Hours: Intake & Output 03/26/19 03/26/19 03/26/19 06:59 14:59 22:59 Intake Total 1050 800 Output Total 400 960 Balance 650 -160 Lab Results Last 24 Hours: Laboratory Results - last 24 hr 03/25/19 03/25/19 03/25/19 Range/Units 18:50 18:50 18:50 WBC 8.05 (4.0-11.0) K/uL RBC 3.45 L (4.50-5.90) M/uL Hgb 10.8 L (13.0-17.0) g/dL Hct 34.7 L (38.0-50.0) % MCV 100.6 H (80.0-98.0) fL MCH 31.3 (27.0-32.0) pg MCHC 31.1 (31.0-37.0) g/dL RDW Std Deviation 50.1 (28.0-62.0) fl RDW Coeff of Kiersten 14 (11.0-15.0) % Plt Count 142 L (150-400) K/uL MPV 10.30 (7.40-12.00) fL Neut % (Auto) 72.0 (48.0-80.0) % Lymph % (Auto) 18.0 (16.0-40.0) % [place] % (Auto) 7.7 (0.0-15.0) % Eos % (Auto) 2.1 (0.0-7.0) % Baso % (Auto) 0.2 (0.0-1.5) % Neut # (Auto) 5.8 H (1.4-5.7) K/uL Lymph # (Auto) 1.5 (0.6-2.4) K/uL [place] # (Auto) 0.6 (0.0-0.8) K/uL Eos # (Auto) 0.2 (0.0-0.7) K/uL Baso # (Auto) 0.0 (0.0-0.1) K/uL Nucleated RBC % 0.0 /100WBC Nucleated RBCs # 0 K/uL INR 1.13 Sodium 140 (136-148) mmol/L Potassium 4.0 (3.5-5.1) mmol/L Chloride 102 (98-107) mmol/L Carbon Dioxide 27.8 (21.0-32.0) mmol/L BUN 17 (7.0-18.0) mg/dL Creatinine 1.2 (0.8-1.3) mg/dL Est Cr Clr Drug Dosing TNP Estimated GFR (MDRD) 57.8 ml/min Glucose 257 H (74-106) mg/dL Calcium 8.4 L (8.5-10.1) mg/dL Total Bilirubin 0.3 (0.2-1.0) mg/dL AST 9 L (15-37) IU/L ALT 17 (14-63) IU/L Alkaline Phosphatase 48 (46-116) U/L Troponin I < 0.050 (0.000-0.056) ng/mL Total Protein 6.5 (6.4-8.2) g/dL Albumin 3.2 L (3.4-5.0) g/dL Globulin 3.3 (2.6-4.0) g/dL Albumin/Globulin Ratio 1.0 (0.9-1.6) 03/26/19 03/26/19 Range/Units 05:25 05:25 WBC 6.85 (4.0-11.0) K/uL RBC 3.33 L (4.50-5.90) M/uL Hgb 10.4 L (13.0-17.0) g/dL Hct 33.6 L (38.0-50.0) % MCV 100.9 H (80.0-98.0) fL MCH 31.2 (27.0-32.0) pg MCHC 31.0 (31.0-37.0) g/dL RDW Std Deviation 51.1 (28.0-62.0) fl RDW Coeff of Kiersten 14 (11.0-15.0) % Plt Count 139 L (150-400) K/uL MPV 10.10 (7.40-12.00) fL Neut % (Auto) 72.7 (48.0-80.0) % Lymph % (Auto) 15.2 L (16.0-40.0) % [place] % (Auto) 9.8 (0.0-15.0) % Eos % (Auto) 2.2 (0.0-7.0) % Baso % (Auto) 0.1 (0.0-1.5) % Neut # (Auto) 5.0 (1.4-5.7) K/uL Lymph # (Auto) 1.0 (0.6-2.4) K/uL [place] # (Auto) 0.7 (0.0-0.8) K/uL Eos # (Auto) 0.2 (0.0-0.7) K/uL Baso # (Auto) 0.0 (0.0-0.1) K/uL Nucleated RBC % 0.0 /100WBC Nucleated RBCs # 0 K/uL INR Sodium 142 (136-148) mmol/L Potassium 4.4 (3.5-5.1) mmol/L Chloride 106 (98-107) mmol/L Carbon Dioxide 33.0 H (21.0-32.0) mmol/L BUN 16 (7.0-18.0) mg/dL Creatinine 1.1 (0.8-1.3) mg/dL Est Cr Clr Drug Dosing 50.88 Estimated GFR (MDRD) > 60.0 ml/min Glucose 146 H (74-106) mg/dL Calcium 8.2 L (8.5-10.1) mg/dL Total Bilirubin (0.2-1.0) mg/dL AST (15-37) IU/L ALT (14-63) IU/L Alkaline Phosphatase (46-116) U/L Troponin I (0.000-0.056) ng/mL Total Protein (6.4-8.2) g/dL Albumin (3.4-5.0) g/dL Globulin (2.6-4.0) g/dL Albumin/Globulin Ratio (0.9-1.6) Med Orders - Current: Current Medications Sodium Chloride (Normal Saline) 1,000 mls @ 999 mls/hr IV ASDIRECTED [facility] Last Admin: 03/25/19 20:39 Dose: 999 mls/hr Amiodarone HCl/Dextrose (Nexterone In Dextrose 360 Mg/200 Ml) 360 mg in 200 mls @ 33.333 mls/hr IV ASDIRECTED [facility]; Protocol Last Infusion: 03/26/19 11:59 Dose: 1 mg/min, 33.333 mls/hr Metformin HCl (Glucophage) 1,000 mg PO DAILY@0830 [facility] Last Admin: 03/26/19 08:32 Dose: 1,000 mg Pantoprazole Sodium (Protonix) 40 mg PO DAILY [facility] Last Admin: 03/26/19 09:15 Dose: 40 mg Rivaroxaban (Xarelto) 20 mg PO DAILY [facility] Last Admin: 03/26/19 09:15 Dose: 20 mg Simvastatin (Zocor) 80 mg PO BEDTIME [facility] Sodium Chloride (Saline Flush) 10 ml FLUSH ASDIRECTED PRN PRN Reason: Keep Vein Open Sodium Chloride (Saline Flush) 2.5 ml FLUSH ASDIRECTED PRN PRN Reason: Keep Vein Open Verapamil HCl (Calan Sr) 180 mg PO DAILY [facility] Last Admin: 03/26/19 11:47 Dose: 180 mg Discontinued Medications Amiodarone HCl (Cordarone) 200 mg PO BID [facility] Last Admin: 03/26/19 09:15 Dose: 200 mg Diltiazem HCl (Diltiazem) 25 mg IVPUSH ONETIME ONE Stop: 03/25/19 18:53 Last Admin: 03/25/19 19:02 Dose: 25 mg Diltiazem HCl (Diltiazem) 20 mg IVPUSH ONETIME ONE Stop: 03/25/19 19:19 Last Admin: 03/25/19 19:28 Dose: 20 mg Diphenhydramine HCl (Benadryl) 25 mg IVPUSH ONETIME ONE Stop: 03/25/19 19:34 Last Admin: 03/25/19 19:37 Dose: 25 mg Diphenhydramine HCl (Benadryl) Confirm Administered Dose 50 mg .ROUTE .STK-MED ONE Stop: 03/25/19 19:35 Last Admin: 03/25/19 19:47 Dose: Not Given Fentanyl (Sublimaze) Confirm Administered Dose 100 mcg .ROUTE .STK-MED ONE Stop: 03/25/19 20:25 Last Admin: 03/25/19 21:01 Dose: Not Given Fentanyl (Fentanyl) 50 mcg IVPUSH ONETIME ONE Stop: 03/25/19 21:00 Last Admin: 03/25/19 21:05 Dose: 50 mcg Sodium Chloride (Normal Saline) 1,000 mls @ 999 mls/hr IV STAT ONE Stop: 03/25/19 20:15 Last Admin: 03/25/19 19:27 Dose: 999 mls/hr Propofol (Diprivan 50 Ml) Confirm Administered Dose 50 mls @ as directed .ROUTE .STK-MED ONE Stop: 03/25/19 20:25 Last Admin: 03/25/19 21:01 Dose: Not Given Amiodarone HCl/Dextrose 150 mg (/ Premix) 100 mls @ 600 mls/hr IV ONETIME ONE; Protocol Stop: 03/26/19 11:39 Last Admin: 03/26/19 11:42 Dose: 600 mls/hr Lidocaine HCl (Xylocaine 1%) Confirm Administered Dose 50 ml .ROUTE .STK-MED ONE Stop: 03/25/19 20:27 Last Admin: 03/25/19 21:01 Dose: Not Given Lidocaine HCl (Xylocaine 1%) 10 ml INJECT ONETIME ONE Stop: 03/25/19 21:01 Last Admin: 03/25/19 21:04 Dose: 10 ml Propofol (Diprivan 20 Ml) 60 mg IVPUSH ONETIME ONE Stop: 03/25/19 20:59 Last Admin: 03/25/19 21:04 Dose: 60 mg Simvastatin (Zocor) 800 mg PO DAILY [facility]NASA Simvastatin (Zocor) 80 mg PO DAILY [facility] Last Admin: 03/26/19 10:33 Dose: Not Given - Exam General: Alert, Oriented, Cooperative, No Acute Distress Lungs: Clear to Auscultation. No: Crackles, Wheezing Cardiovascular: Regular Rate, Regular Rhythm GI/Abdominal Exam: Normal Bowel Sounds, No Distention Extremities: Normal Inspection, No Pedal Edema Skin: Warm, Dry - Problem List Review Problem List Initiated/Reviewed/Updated: Yes - Plan Plan:: A: 1. Afib with RVR 2. Macrocytic anemia 3. chronic hypoxic respiratory failure 4. adrenal adenoma P: 1. Afib with RVR, now sinus rhythm s/p electroconversion. Started Amiodarone drip per Dr. Joe recommendations. Started Verapamil 180 ER daily. Continue Xarelto. 2. Chronic hypoxic respiratory failure. Stable. Patient states he has been using home oxygen since he lives in [place] due to high altitude. Will continue to monitor. 3. Macrocytic anemia. Will check folic acid and vitamin b12. 4. Adrenal adenoma seen on CT chest. Will need to follow-up as outpatient. Dispo: likely dc tomorrow.
--- NOTE | 2019-03-26 17:12 | PCM.HP.2 ---
H&P History of Present Illness - General Date of Service: 03/24/19 Admit Problem/Dx: Admission Diagnosis/Problem Admission Diagnosis/Problem Atrial fibrillation with rapid ventricular response - History of Present Illness Initial Comments - Free Text/Narative: Date of admission: 03/24/19 83 y/o male with history of AFib who presented to the ER via EMS after having chest pain, palpitations. No radiation neck or arm. He was seen in the ER where he was found to be in AFib with RVR needing electrocardioversion with 50 J after he did not respond to IV cardizem. He converted to sinus and remained rate controlled during the hospitalization. He remained asymptomatic denying any chest pain,dyspnea, palpitations. Stated he had not been taking metoprolol due to side effects and at the recommendation of his physician. states that he usually gets a flare up once a year. Has been on xarelto for years now. Chest Pain Score (Numeric/FACES): 8 - Related Data Allergies/Adverse Reactions: Allergies Allergy/AdvReac Type Severity Reaction Status Date / Time diltiazem Allergy Hives Verified 03/26/19 00:18 Home Medications: Home Meds Ferrous Sulfate [Iron] 1 tab PO DAILY 05/11/17 [History] Pantoprazole [ProTONIX] 40 mg PO DAILY 05/11/17 [History] Simvastatin [Zocor] 80 tab PO DAILY 05/11/17 [History] metFORMIN HCl [Metformin HCl] 1,000 mg PO DAILY 05/11/17 [History] Rivaroxaban [Xarelto] 20 mg PO DAILY 03/24/19 [History] Past Medical History HEENT History: Reports: None Cardiovascular History: Reports: Afib, Heart Murmur, High Cholesterol, Hypertension, Other (See Below) Other Cardiovascular History: Cardioverted 03/24/2019 Respiratory History: Reports: Other (See Below) Other Respiratory History: Home O2 @ 2.5LPM PRN- used with altitude Gastrointestinal History: Reports: GERD Genitourinary History: Reports: None Musculoskeletal History: Reports: None Neurological History: Reports: TIA Psychiatric History: Reports: None Endocrine/Metabolic History: Reports: Diabetes, Type II, Obesity/BMI 30+ Hematologic History: Reports: None Immunologic History: Reports: None Oncologic (Cancer) History: Reports: None Dermatologic History: Reports: None - Infectious Disease History Infectious Disease History: Reports: Chicken Pox, Measles, Mumps, Shingles - Past Surgical History Cardiovascular Surgical History: Reports: None GI Surgical History: Reports: Appendectomy, Cholecystectomy, Hernia, Abdominal 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 Social & Family History - Family History Family Medical History: Noncontributory Cardiac: Reports: OK - Tobacco Use Smoking Status *Q: Never Smoker Second Hand Smoke Exposure: No - Caffeine Use Caffeine Use: Reports: Coffee - Alcohol Use Days Per Week of Alcohol Use: 7 Number of Drinks Per Day: 1 Total Drinks Per Week: 7 Date of Last Drink: 03/24/19 - Recreational Drug Use Recreational Drug Use: No H&P Review of Systems - Review of Systems: Review Of Systems: See Below Exam - Exam Exam: See Below - Vital Signs Vital Signs: Last Vital Signs Temp 36.7 C 03/26/19 16:00 Pulse 81 03/25/19 21:15 Resp 15 03/26/19 16:00 BP 116/65 03/26/19 16:00 Pulse Ox 95 03/26/19 16:00 Weight: 124.33 kg - Exam General: Alert, Oriented, Cooperative Lungs: Clear to Auscultation, Normal Respiratory Effort Cardiovascular: Regular Rate, Regular Rhythm GI/Abdominal Exam: Normal Bowel Sounds, Soft, Non-Tender Extremities: Normal Inspection Skin: Warm, Dry - Patient Data Lab Results Last 24 hrs: Laboratory Results - last 24 hr 03/25/19 03/25/19 03/25/19 Range/Units 18:50 18:50 18:50 WBC 8.05 (4.0-11.0) K/uL RBC 3.45 L (4.50-5.90) M/uL Hgb 10.8 L (13.0-17.0) g/dL Hct 34.7 L (38.0-50.0) % MCV 100.6 H (80.0-98.0) fL MCH 31.3 (27.0-32.0) pg MCHC 31.1 (31.0-37.0) g/dL RDW Std Deviation 50.1 (28.0-62.0) fl RDW Coeff of Kiersten 14 (11.0-15.0) % Plt Count 142 L (150-400) K/uL MPV 10.30 (7.40-12.00) fL Neut % (Auto) 72.0 (48.0-80.0) % Lymph % (Auto) 18.0 (16.0-40.0) % [place] % (Auto) 7.7 (0.0-15.0) % Eos % (Auto) 2.1 (0.0-7.0) % Baso % (Auto) 0.2 (0.0-1.5) % Neut # (Auto) 5.8 H (1.4-5.7) K/uL Lymph # (Auto) 1.5 (0.6-2.4) K/uL [place] # (Auto) 0.6 (0.0-0.8) K/uL Eos # (Auto) 0.2 (0.0-0.7) K/uL Baso # (Auto) 0.0 (0.0-0.1) K/uL Nucleated RBC % 0.0 /100WBC Nucleated RBCs # 0 K/uL INR 1.13 Sodium 140 (136-148) mmol/L Potassium 4.0 (3.5-5.1) mmol/L Chloride 102 (98-107) mmol/L Carbon Dioxide 27.8 (21.0-32.0) mmol/L BUN 17 (7.0-18.0) mg/dL Creatinine 1.2 (0.8-1.3) mg/dL Est Cr Clr Drug Dosing TNP Estimated GFR (MDRD) 57.8 ml/min Glucose 257 H (74-106) mg/dL Calcium 8.4 L (8.5-10.1) mg/dL Total Bilirubin 0.3 (0.2-1.0) mg/dL AST 9 L (15-37) IU/L ALT 17 (14-63) IU/L Alkaline Phosphatase 48 (46-116) U/L Troponin I < 0.050 (0.000-0.056) ng/mL Total Protein 6.5 (6.4-8.2) g/dL Albumin 3.2 L (3.4-5.0) g/dL Globulin 3.3 (2.6-4.0) g/dL Albumin/Globulin Ratio 1.0 (0.9-1.6) 03/26/19 03/26/19 Range/Units 05:25 05:25 WBC 6.85 (4.0-11.0) K/uL RBC 3.33 L (4.50-5.90) M/uL Hgb 10.4 L (13.0-17.0) g/dL Hct 33.6 L (38.0-50.0) % MCV 100.9 H (80.0-98.0) fL MCH 31.2 (27.0-32.0) pg MCHC 31.0 (31.0-37.0) g/dL RDW Std Deviation 51.1 (28.0-62.0) fl RDW Coeff of Kiersten 14 (11.0-15.0) % Plt Count 139 L (150-400) K/uL MPV 10.10 (7.40-12.00) fL Neut % (Auto) 72.7 (48.0-80.0) % Lymph % (Auto) 15.2 L (16.0-40.0) % [place] % (Auto) 9.8 (0.0-15.0) % Eos % (Auto) 2.2 (0.0-7.0) % Baso % (Auto) 0.1 (0.0-1.5) % Neut # (Auto) 5.0 (1.4-5.7) K/uL Lymph # (Auto) 1.0 (0.6-2.4) K/uL [place] # (Auto) 0.7 (0.0-0.8) K/uL Eos # (Auto) 0.2 (0.0-0.7) K/uL Baso # (Auto) 0.0 (0.0-0.1) K/uL Nucleated RBC % 0.0 /100WBC Nucleated RBCs # 0 K/uL INR Sodium 142 (136-148) mmol/L Potassium 4.4 (3.5-5.1) mmol/L Chloride 106 (98-107) mmol/L Carbon Dioxide 33.0 H (21.0-32.0) mmol/L BUN 16 (7.0-18.0) mg/dL Creatinine 1.1 (0.8-1.3) mg/dL Est Cr Clr Drug Dosing 50.88 Estimated GFR (MDRD) > 60.0 ml/min Glucose 146 H (74-106) mg/dL Calcium 8.2 L (8.5-10.1) mg/dL Total Bilirubin (0.2-1.0) mg/dL AST (15-37) IU/L ALT (14-63) IU/L Alkaline Phosphatase (46-116) U/L Troponin I (0.000-0.056) ng/mL Total Protein (6.4-8.2) g/dL Albumin (3.4-5.0) g/dL Globulin (2.6-4.0) g/dL Albumin/Globulin Ratio (0.9-1.6) Result Diagrams: 03/26/19 05:25 03/26/19 05:25 Problem List Initiated/Reviewed/Updated: Yes Orders Last 24hrs: Active Orders 24 hr Category Date Time Status Admission Status [Patient Status] [ADT] Stat ADT 03/25/19 20:58 Active Antiembolic Devices [RC] PER UNIT ROUTINE Care 03/25/19 21:10 Active Blood Glucose Check, Bedside [RC] TIDMEALS Care 03/25/19 21:09 Active Overnight Pulse Oximetry [RC] Click to Edit Care 03/25/19 20:56 Active Oxygen Therapy [RC] PRN Care 03/25/19 21:09 Active Up ad [place] [RC] ASDIRECTED Care 03/25/19 21:09 Active VTE/DVT Education [RC] PER UNIT ROUTINE Care 03/25/19 21:09 Active Vital Signs [RC] Q1H Care 03/25/19 21:09 Active BASIC METABOLIC PANEL,BMP [CHEM] AM Lab 03/27/19 05:11 Ordered BASIC METABOLIC PANEL,BMP [CHEM] AM Lab 03/28/19 05:11 Ordered CBC WITH AUTO DIFF [HEME] AM Lab 03/27/19 05:11 Ordered CBC WITH AUTO DIFF [HEME] AM Lab 03/28/19 05:11 Ordered FOLIC ACID [CHEM] Routine Lab 03/26/19 05:25 Received VITAMIN B12 [CHEM] Routine Lab 03/26/19 05:25 Received Amiodarone In Dextrose,Iso-Osm [Nexterone in Dextrose Med 03/26/19 11:00 Active 360 MG/200 ML] 360 mg in 200 ml IV ASDIRECTED Pantoprazole [ProTONIX] Med 03/26/19 09:00 Active 40 mg PO DAILY Rivaroxaban [Xarelto] Med 03/26/19 09:00 Active 20 mg PO DAILY Simvastatin [Zocor] Med 03/26/19 21:00 Active 80 mg PO BEDTIME Sodium Chloride 0.9% [Normal Saline] 1,000 ml Med 03/25/19 20:45 Active IV ASDIRECTED Sodium Chloride 0.9% [Saline Flush] Med 03/25/19 18:51 Active 10 ml FLUSH ASDIRECTED PRN Sodium Chloride 0.9% [Saline Flush] Med 03/25/19 18:51 Active 2.5 ml FLUSH ASDIRECTED PRN Verapamil [Calan SR] Med 03/26/19 11:15 Active 180 mg PO DAILY metFORMIN [Glucophage] Med 03/26/19 08:30 Active 1,000 mg PO DAILY@0830 Pulse Oximetry Continuous Monitoring [OM.PC] Routine Oth 03/25/19 20:56 Ordered Saline Lock Insert [OM.PC] Stat Oth 03/25/19 18:51 Ordered Sequential Compression Device [OM.PC] Per Unit Routine Oth 03/25/19 21:09 Ordered Resuscitation Status Routine Resus Stat 03/25/19 21:09 Ordered Medication Orders Sodium Chloride (Normal Saline) 1,000 mls @ 999 mls/hr IV ASDIRECTED MANASA Last Admin: 03/25/19 20:39 Dose: 999 mls/hr Amiodarone HCl/Dextrose (Nexterone In Dextrose 360 Mg/200 Ml) 360 mg in 200 mls @ 33.333 mls/hr IV ASDIRECTED MANASA; Protocol Last Infusion: 03/26/19 11:59 Dose: 1 mg/min, 33.333 mls/hr Admin: 03/26/19 11:42 Dose: 1 mg/min, 33.333 mls/hr Metformin HCl (Glucophage) 1,000 mg PO DAILY@0830 MANASA Last Admin: 03/26/19 08:32 Dose: 1,000 mg Pantoprazole Sodium (Protonix) 40 mg PO DAILY [facility] Last Admin: 03/26/19 09:15 Dose: 40 mg Rivaroxaban (Xarelto) 20 mg PO DAILY [facility] Last Admin: 03/26/19 09:15 Dose: 20 mg Simvastatin (Zocor) 80 mg PO BEDTIME [facility] Sodium Chloride (Saline Flush) 10 ml FLUSH ASDIRECTED PRN PRN Reason: Keep Vein Open Sodium Chloride (Saline Flush) 2.5 ml FLUSH ASDIRECTED PRN PRN Reason: Keep Vein Open Verapamil HCl (Calan Sr) 180 mg PO DAILY MANASA Last Admin: 03/26/19 11:47 Dose: 180 mg Assessment/Plan Comment:: A: 1. Afib with RVR, rate controlled. 2. Macrocytic anemia 3. Chronic hypoxic respiratory failure P: 1. Afib with RVR, now sinus rhythm s/p electroconversion. Did not start a rate control medication like cardizem candace patient will be following up with cardiology tomorrow. Echo results pending. In addition, patient states he has been taking iron tabs for his anemia and has been using home oxygen due to high altitude in [place].
[2019-03-26] MEDS ORDERED: Simvastatin 40 MG Tab PO SCH (21:00)
[2019-03-27 06:46] LABS: POTASSIUM,K 4.6 mmol/L (3.5-5.1)
[2019-03-27] MEDS: Pantoprazole 40 MG Tab.CR PO SCH (09:27)
[2019-03-27] MEDS: Rivaroxaban 10 MG Tab PO SCH (09:28)
[2019-03-27] MEDS: Verapamil 180 MG Tab.ER PO SCH (09:30)
--- NOTE | 2019-03-27 11:06 | PN ---
TH[facility] Physician - Brief Progress [id number]/24/2019 11:02[facility] [place] Yaakov munoz JOSE - PATI (ROSE) - [facility] CENTERJOELLEJUDY MORRISAdrielDate of Service 03/27/2019 11:02HPI/Events of Note eICU follow-up noteReason for ICU admission:1. Atrial fibrillation RVR-currently in sinus rh ythm on amiodarone drip2. hypomagnesemia-replaced3. Type 2 diabetes mellitusLast 24-hour events:Marion ent was started on amiodarone drip. Cardioverted to sinus rhythm. Hemodynamically stable. No acute events overnighteICU, assessment completedPatient is sitting up in chair, no acute distressVitals:Af ebrile, BP 131/77, P 82 regular, SPO2 92% on room airChart, labs and images reviewedEICU recommendati ons:Continue current treatment plan as per primary medical team and cardiologyRate control for target heart rate less than 110, verapamil 180 mg dailyContinue XareltoMaintain magnesium greater than 2, p otassium greater than 4PT/OT/discharge planningCase discussed with ICU nursing staff-no needs from eI CU at this time.Thank you for allowing us to participate in the care of your patient.Interventions In termediate-Arrhythmia - evaluation and management, Communication with other healthcare providers and/ or family
[2019-03-27] MEDS ORDERED: Amiodarone 200 MG Tab PO SCH ×2 (13:30→14:00)
--- NOTE | 2019-03-27 17:35 | PCM.DCSUM1 ---
<Sergio Kaiser - Last Filed: 03/27/19 18:35> Discharge Summary - Hospital Course Free Text/Narrative:: 83 y/o male with history of AFib on Xarelto who was admitted for AFib with RVR. Patient had been discharged from the hospital 1 day before,however, he went home and started having similar palpitations, dyspnea. In the ER, he was administered diltiazem IV, however, he seemed to have an adverse reaction to the medication. The patient needed to be electroconverted with 50 J in the ER. That converted him to sinus. He was started on amiodarone drip and did relatively well during this hospitalization. He remained in sinus and rate controlled. Symptoms had resolved. No chest pain or dyspnea. A CT chest was performed which showed a small right adrenal adenoma. He will need to follow-up with PCP as outpatient for this. He was discharged on amiodarone. He was instructed to follow-up with cardiology. - Discharge Data Discharge Date: 03/27/19 Discharge Disposition: Home, Self-Care 01 Condition: Stable - Referral to Home Health Primary Care Physician: Titus Skelton MD - Patient Instructions Diet: Heart Healthy Diet Activity: As Tolerated Showering/Bathing: May Shower Notify Provider of: Increased Pain, Nausea and/or Vomiting - Discharge Plan *PRESCRIPTION DRUG MONITORING PROGRAM REVIEWED*: Not Applicable *COPY OF PRESCRIPTION DRUG MONITORING REPORT IN PATIENT LEI: Not Applicable Prescriptions/Med Rec: Amiodarone [Cordarone] 400 mg PO TID #90 tablet Home Medications: Home Meds Ferrous Sulfate [Iron] 1 tab PO DAILY 05/11/17 [History] Pantoprazole [ProTONIX] 40 mg PO DAILY 05/11/17 [History] Simvastatin [Zocor] 80 tab PO DAILY 05/11/17 [History] metFORMIN HCl [Metformin HCl] 1,000 mg PO DAILY 05/11/17 [History] Rivaroxaban [Xarelto] 20 mg PO DAILY 03/24/19 [History] Amiodarone [Cordarone] 400 mg PO TID #90 tablet 03/27/19 [Rx] Patient Handouts: Atrial Fibrillation, [id number] Forms: ED Department Discharge Referrals: Titus Skelton MD [Primary Care Provider] - (Clinic followup will be scheduled after cardiology appointments in [place], [place]. Dr. Garvin' nurse will call you with a followup appointment date and time when all information from testing is acquired.) - Discharge Summary/Plan Comment DC Time >30 min.: No - Patient Data Vitals - Most Recent: Last Vital Signs Temp 36.4 C 03/27/19 12:00 Pulse 81 03/25/19 21:15 Resp 20 03/27/19 13:00 BP 111/70 03/27/19 13:00 Pulse Ox 91 L 03/27/19 13:00 Weight - Most Recent: 121.619 kg I&O - Last 24 hours: Intake & Output 03/27/19 03/27/19 03/27/19 06:59 14:59 22:59 Intake Total 600 Output Total 500 Balance 100 Lab Results - Last 24 hrs: Laboratory Results - last 24 hr 03/26/19 03/26/19 03/26/19 Range/Units 05:25 08:33 12:30 WBC (4.0-11.0) K/uL RBC (4.50-5.90) M/uL Hgb (13.0-17.0) g/dL Hct (38.0-50.0) % MCV (80.0-98.0) fL MCH (27.0-32.0) pg MCHC (31.0-37.0) g/dL RDW Std Deviation (28.0-62.0) fl RDW Coeff of Kiersten (11.0-15.0) % Plt Count (150-400) K/uL MPV (7.40-12.00) fL Neut % (Auto) (48.0-80.0) % Lymph % (Auto) (16.0-40.0) % [place] % (Auto) (0.0-15.0) % Eos % (Auto) (0.0-7.0) % Baso % (Auto) (0.0-1.5) % Neut # (Auto) (1.4-5.7) K/uL Lymph # (Auto) (0.6-2.4) K/uL [place] # (Auto) (0.0-0.8) K/uL Eos # (Auto) (0.0-0.7) K/uL Baso # (Auto) (0.0-0.1) K/uL Nucleated RBC % /100WBC Nucleated RBCs # K/uL Sodium (136-148) mmol/L Potassium (3.5-5.1) mmol/L Chloride (98-107) mmol/L Carbon Dioxide (21.0-32.0) mmol/L BUN (7.0-18.0) mg/dL Creatinine (0.8-1.3) mg/dL Est Cr Clr Drug Dosing mL/min Estimated GFR (MDRD) ml/min Glucose (74-106) mg/dL POC Glucose 167 H 138 H (60-110) mg/dL Calcium (8.5-10.1) mg/dL Vitamin B12 264 (193-986) pg/mL Folate 59.30 H (8.60-58.90) ng/mL 03/26/19 03/27/19 03/27/19 Range/Units 17:51 06:05 06:22 WBC 7.81 (4.0-11.0) K/uL RBC 3.50 L (4.50-5.90) M/uL Hgb 10.8 L (13.0-17.0) g/dL Hct 36.1 L (38.0-50.0) % MCV 103.1 H (80.0-98.0) fL MCH 30.9 (27.0-32.0) pg MCHC 29.9 L (31.0-37.0) g/dL RDW Std Deviation 52.2 (28.0-62.0) fl RDW Coeff of Kiersten 14 (11.0-15.0) % Plt Count 139 L (150-400) K/uL MPV 10.70 (7.40-12.00) fL Neut % (Auto) 75.1 (48.0-80.0) % Lymph % (Auto) 12.7 L (16.0-40.0) % [place] % (Auto) 9.9 (0.0-15.0) % Eos % (Auto) 2.0 (0.0-7.0) % Baso % (Auto) 0.3 (0.0-1.5) % Neut # (Auto) 5.9 H (1.4-5.7) K/uL Lymph # (Auto) 1.0 (0.6-2.4) K/uL [place] # (Auto) 0.8 (0.0-0.8) K/uL Eos # (Auto) 0.2 (0.0-0.7) K/uL Baso # (Auto) 0.0 (0.0-0.1) K/uL Nucleated RBC % 0.0 /100WBC Nucleated RBCs # 0 K/uL Sodium (136-148) mmol/L Potassium (3.5-5.1) mmol/L Chloride (98-107) mmol/L Carbon Dioxide (21.0-32.0) mmol/L BUN (7.0-18.0) mg/dL Creatinine (0.8-1.3) mg/dL Est Cr Clr Drug Dosing mL/min Estimated GFR (MDRD) ml/min Glucose (74-106) mg/dL POC Glucose 125 H 112 H (60-110) mg/dL Calcium (8.5-10.1) mg/dL Vitamin B12 (193-986) pg/mL Folate (8.60-58.90) ng/mL 03/27/19 03/27/19 Range/Units 06:22 11:54 WBC (4.0-11.0) K/uL RBC (4.50-5.90) M/uL Hgb (13.0-17.0) g/dL Hct (38.0-50.0) % MCV (80.0-98.0) fL MCH (27.0-32.0) pg MCHC (31.0-37.0) g/dL RDW Std Deviation (28.0-62.0) fl RDW Coeff of Kiersten (11.0-15.0) % Plt Count (150-400) K/uL MPV (7.40-12.00) fL Neut % (Auto) (48.0-80.0) % Lymph % (Auto) (16.0-40.0) % [place] % (Auto) (0.0-15.0) % Eos % (Auto) (0.0-7.0) % Baso % (Auto) (0.0-1.5) % Neut # (Auto) (1.4-5.7) K/uL Lymph # (Auto) (0.6-2.4) K/uL [place] # (Auto) (0.0-0.8) K/uL Eos # (Auto) (0.0-0.7) K/uL Baso # (Auto) (0.0-0.1) K/uL Nucleated RBC % /100WBC Nucleated RBCs # K/uL Sodium 142 (136-148) mmol/L Potassium 4.6 (3.5-5.1) mmol/L Chloride 103 (98-107) mmol/L Carbon Dioxide 34.0 H (21.0-32.0) mmol/L BUN 19 H (7.0-18.0) mg/dL Creatinine 1.3 (0.8-1.3) mg/dL Est Cr Clr Drug Dosing 43.05 mL/min Estimated GFR (MDRD) 52.7 ml/min Glucose 143 H (74-106) mg/dL POC Glucose 124 H (60-110) mg/dL Calcium 8.6 (8.5-10.1) mg/dL Vitamin B12 (193-986) pg/mL Folate (8.60-58.90) ng/mL Med Orders - Current: Current Medications Amiodarone HCl (Cordarone) 400 mg PO TID [facility] Last Admin: 03/27/19 13:59 Dose: 400 mg Sodium Chloride (Normal Saline) 1,000 mls @ 999 mls/hr IV ASDIRECTED [facility] Last Admin: 03/25/19 20:39 Dose: 999 mls/hr Pantoprazole Sodium (Protonix) 40 mg PO DAILY [facility] Last Admin: 03/27/19 09:27 Dose: 40 mg Rivaroxaban (Xarelto) 20 mg PO DAILY [facility] Last Admin: 03/27/19 09:28 Dose: 20 mg Simvastatin (Zocor) 80 mg PO BEDTIME [facility] Last Admin: 03/26/19 20:07 Dose: 80 mg Sodium Chloride (Saline Flush) 10 ml FLUSH ASDIRECTED PRN PRN Reason: Keep Vein Open Sodium Chloride (Saline Flush) 2.5 ml FLUSH ASDIRECTED PRN PRN Reason: Keep Vein Open Discontinued Medications Amiodarone HCl (Cordarone) 200 mg PO BID [facility] Last Admin: 03/26/19 09:15 Dose: 200 mg Amiodarone HCl (Cordarone) 200 mg PO BID [facility] Diltiazem HCl (Diltiazem) 25 mg IVPUSH ONETIME ONE Stop: 03/25/19 18:53 Last Admin: 03/25/19 19:02 Dose: 25 mg Diltiazem HCl (Diltiazem) 20 mg IVPUSH ONETIME ONE Stop: 03/25/19 19:19 Last Admin: 03/25/19 19:28 Dose: 20 mg Diphenhydramine HCl (Benadryl) 25 mg IVPUSH ONETIME ONE Stop: 03/25/19 19:34 Last Admin: 03/25/19 19:37 Dose: 25 mg Diphenhydramine HCl (Benadryl) Confirm Administered Dose 50 mg .ROUTE .STK-MED ONE Stop: 03/25/19 19:35 Last Admin: 03/25/19 19:47 Dose: Not Given Fentanyl (Sublimaze) Confirm Administered Dose 100 mcg .ROUTE .STK-MED ONE Stop: 03/25/19 20:25 Last Admin: 03/25/19 21:01 Dose: Not Given Fentanyl (Fentanyl) 50 mcg IVPUSH ONETIME ONE Stop: 03/25/19 21:00 Last Admin: 03/25/19 21:05 Dose: 50 mcg Sodium Chloride (Normal Saline) 1,000 mls @ 999 mls/hr IV STAT ONE Stop: 03/25/19 20:15 Last Admin: 03/25/19 19:27 Dose: 999 mls/hr Propofol (Diprivan 50 Ml) Confirm Administered Dose 50 mls @ as directed .ROUTE .STK-MED ONE Stop: 03/25/19 20:25 Last Admin: 03/25/19 21:01 Dose: Not Given Amiodarone HCl/Dextrose (Nexterone In Dextrose 360 Mg/200 Ml) 360 mg in 200 mls @ 33.333 mls/hr IV ASDIRECTED [facility]; Protocol Last Infusion: 03/26/19 11:59 Dose: 1 mg/min, 33.333 mls/hr Amiodarone HCl/Dextrose 150 mg (/ Premix) 100 mls @ 600 mls/hr IV ONETIME ONE; Protocol Stop: 03/26/19 11:39 Last Admin: 03/26/19 11:42 Dose: 600 mls/hr Amiodarone HCl/Dextrose (Nexterone In Dextrose 360 Mg/200 Ml) 360 mg in 200 mls @ 16.667 mls/hr IV ASDIRECTED [facility]; Protocol Stop: 03/28/19 01:46 Last Admin: 03/27/19 05:30 Dose: 0.5 mg/min, 16.667 mls/hr Lidocaine HCl (Xylocaine 1%) Confirm Administered Dose 50 ml .ROUTE .STK-MED ONE Stop: 03/25/19 20:27 Last Admin: 03/25/19 21:01 Dose: Not Given Lidocaine HCl (Xylocaine 1%) 10 ml INJECT ONETIME ONE Stop: 03/25/19 21:01 Last Admin: 03/25/19 21:04 Dose: 10 ml Metformin HCl (Glucophage) 1,000 mg PO DAILY@0830 [facility] Last Admin: 03/26/19 08:32 Dose: 1,000 mg Propofol (Diprivan 20 Ml) 60 mg IVPUSH ONETIME ONE Stop: 03/25/19 20:59 Last Admin: 03/25/19 21:04 Dose: 60 mg Simvastatin (Zocor) 800 mg PO DAILY [facility] Simvastatin (Zocor) 80 mg PO DAILY [facility] Last Admin: 03/26/19 10:33 Dose: Not Given Verapamil HCl (Calan Sr) 180 mg PO DAILY [facility] Last Admin: 03/27/19 09:30 Dose: 180 mg <Gómez Marte - Last Filed: 03/27/19 20:40> Discharge Summary - Referral to Home Health Primary Care Physician: Titus Skelton MD - Patient Data Vitals - Most Recent: Last Vital Signs Temp 36.4 C 03/27/19 12:00 Pulse 81 03/25/19 21:15 Resp 20 03/27/19 13:00 BP 111/70 03/27/19 13:00 Pulse Ox 91 L 03/27/19 13:00 I&O - Last 24 hours: Intake & Output 03/27/19 03/27/19 03/27/19 06:59 14:59 22:59 Intake Total 600 Output Total 500 Balance 100 Lab Results - Last 24 hrs: Laboratory Results - last 24 hr 03/27/19 03/27/19 03/27/19 Range/Units 06:05 06:22 06:22 WBC 7.81 (4.0-11.0) K/uL RBC 3.50 L (4.50-5.90) M/uL Hgb 10.8 L (13.0-17.0) g/dL Hct 36.1 L (38.0-50.0) % MCV 103.1 H (80.0-98.0) fL MCH 30.9 (27.0-32.0) pg MCHC 29.9 L (31.0-37.0) g/dL RDW Std Deviation 52.2 (28.0-62.0) fl RDW Coeff of Kiersten 14 (11.0-15.0) % Plt Count 139 L (150-400) K/uL MPV 10.70 (7.40-12.00) fL Neut % (Auto) 75.1 (48.0-80.0) % Lymph % (Auto) 12.7 L (16.0-40.0) % [place] % (Auto) 9.9 (0.0-15.0) % Eos % (Auto) 2.0 (0.0-7.0) % Baso % (Auto) 0.3 (0.0-1.5) % Neut # (Auto) 5.9 H (1.4-5.7) K/uL Lymph # (Auto) 1.0 (0.6-2.4) K/uL [place] # (Auto) 0.8 (0.0-0.8) K/uL Eos # (Auto) 0.2 (0.0-0.7) K/uL Baso # (Auto) 0.0 (0.0-0.1) K/uL Nucleated RBC % 0.0 /100WBC Nucleated RBCs # 0 K/uL Sodium 142 (136-148) mmol/L Potassium 4.6 (3.5-5.1) mmol/L Chloride 103 (98-107) mmol/L Carbon Dioxide 34.0 H (21.0-32.0) mmol/L BUN 19 H (7.0-18.0) mg/dL Creatinine 1.3 (0.8-1.3) mg/dL Est Cr Clr Drug Dosing 43.05 mL/min Estimated GFR (MDRD) 52.7 ml/min Glucose 143 H (74-106) mg/dL POC Glucose 112 H (60-110) mg/dL Calcium 8.6 (8.5-10.1) mg/dL 03/27/19 Range/Units 11:54 WBC (4.0-11.0) K/uL RBC (4.50-5.90) M/uL Hgb (13.0-17.0) g/dL Hct (38.0-50.0) % MCV (80.0-98.0) fL MCH (27.0-32.0) pg MCHC (31.0-37.0) g/dL RDW Std Deviation (28.0-62.0) fl RDW Coeff of Kiersten (11.0-15.0) % Plt Count (150-400) K/uL MPV (7.40-12.00) fL Neut % (Auto) (48.0-80.0) % Lymph % (Auto) (16.0-40.0) % [place] % (Auto) (0.0-15.0) % Eos % (Auto) (0.0-7.0) % Baso % (Auto) (0.0-1.5) % Neut # (Auto) (1.4-5.7) K/uL Lymph # (Auto) (0.6-2.4) K/uL [place] # (Auto) (0.0-0.8) K/uL Eos # (Auto) (0.0-0.7) K/uL Baso # (Auto) (0.0-0.1) K/uL Nucleated RBC % /100WBC Nucleated RBCs # K/uL Sodium (136-148) mmol/L Potassium (3.5-5.1) mmol/L Chloride (98-107) mmol/L Carbon Dioxide (21.0-32.0) mmol/L BUN (7.0-18.0) mg/dL Creatinine (0.8-1.3) mg/dL Est Cr Clr Drug Dosing mL/min Estimated GFR (MDRD) ml/min Glucose (74-106) mg/dL POC Glucose 124 H (60-110) mg/dL Calcium (8.5-10.1) mg/dL Med Orders - Current: Current Medications Discontinued Medications Amiodarone HCl (Cordarone) 200 mg PO BID [facility] Last Admin: 03/26/19 09:15 Dose: 200 mg Amiodarone HCl (Cordarone) 200 mg PO BID [facility] Amiodarone HCl (Cordarone) 400 mg PO TID [facility] Last Admin: 03/27/19 13:59 Dose: 400 mg Diltiazem HCl (Diltiazem) 25 mg IVPUSH ONETIME ONE Stop: 03/25/19 18:53 Last Admin: 03/25/19 19:02 Dose: 25 mg Diltiazem HCl (Diltiazem) 20 mg IVPUSH ONETIME ONE Stop: 03/25/19 19:19 Last Admin: 03/25/19 19:28 Dose: 20 mg Diphenhydramine HCl (Benadryl) 25 mg IVPUSH ONETIME ONE Stop: 03/25/19 19:34 Last Admin: 03/25/19 19:37 Dose: 25 mg Diphenhydramine HCl (Benadryl) Confirm Administered Dose 50 mg .ROUTE .STK-MED ONE Stop: 03/25/19 19:35 Last Admin: 03/25/19 19:47 Dose: Not Given Fentanyl (Sublimaze) Confirm Administered Dose 100 mcg .ROUTE .STK-MED ONE Stop: 03/25/19 20:25 Last Admin: 03/25/19 21:01 Dose: Not Given Fentanyl (Fentanyl) 50 mcg IVPUSH ONETIME ONE Stop: 03/25/19 21:00 Last Admin: 03/25/19 21:05 Dose: 50 mcg Sodium Chloride (Normal Saline) 1,000 mls @ 999 mls/hr IV STAT ONE Stop: 03/25/19 20:15 Last Admin: 03/25/19 19:27 Dose: 999 mls/hr Propofol (Diprivan 50 Ml) Confirm Administered Dose 50 mls @ as directed .ROUTE .STK-MED ONE Stop: 03/25/19 20:25 Last Admin: 03/25/19 21:01 Dose: Not Given Sodium Chloride (Normal Saline) 1,000 mls @ 999 mls/hr IV ASDIRECTED [facility] Last Admin: 03/25/19 20:39 Dose: 999 mls/hr Amiodarone HCl/Dextrose (Nexterone In Dextrose 360 Mg/200 Ml) 360 mg in 200 mls @ 33.333 mls/hr IV ASDIRECTED [facility]; Protocol Last Infusion: 03/26/19 11:59 Dose: 1 mg/min, 33.333 mls/hr Amiodarone HCl/Dextrose 150 mg (/ Premix) 100 mls @ 600 mls/hr IV ONETIME ONE; Protocol Stop: 03/26/19 11:39 Last Admin: 03/26/19 11:42 Dose: 600 mls/hr Amiodarone HCl/Dextrose (Nexterone In Dextrose 360 Mg/200 Ml) 360 mg in 200 mls @ 16.667 mls/hr IV ASDIRECTED [facility]; Protocol Stop: 03/28/19 01:46 Last Admin: 03/27/19 05:30 Dose: 0.5 mg/min, 16.667 mls/hr Lidocaine HCl (Xylocaine 1%) Confirm Administered Dose 50 ml .ROUTE .STK-MED ONE Stop: 03/25/19 20:27 Last Admin: 03/25/19 21:01 Dose: Not Given Lidocaine HCl (Xylocaine 1%) 10 ml INJECT ONETIME ONE Stop: 03/25/19 21:01 Last Admin: 03/25/19 21:04 Dose: 10 ml Metformin HCl (Glucophage) 1,000 mg PO DAILY@0830 [facility] Last Admin: 03/26/19 08:32 Dose: 1,000 mg Pantoprazole Sodium (Protonix) 40 mg PO DAILY [facility] Last Admin: 03/27/19 09:27 Dose: 40 mg Propofol (Diprivan 20 Ml) 60 mg IVPUSH ONETIME ONE Stop: 03/25/19 20:59 Last Admin: 03/25/19 21:04 Dose: 60 mg Rivaroxaban (Xarelto) 20 mg PO DAILY [facility] Last Admin: 03/27/19 09:28 Dose: 20 mg Simvastatin (Zocor) 800 mg PO DAILY [facility] Simvastatin (Zocor) 80 mg PO DAILY [facility] Last Admin: 03/26/19 10:33 Dose: Not Given Simvastatin (Zocor) 80 mg PO BEDTIME [facility] Last Admin: 03/26/19 20:07 Dose: 80 mg Sodium Chloride (Saline Flush) 10 ml FLUSH ASDIRECTED PRN PRN Reason: Keep Vein Open Sodium Chloride (Saline Flush) 2.5 ml FLUSH ASDIRECTED PRN PRN Reason: Keep Vein Open Verapamil HCl (Calan Sr) 180 mg PO DAILY [facility] Last Admin: 03/27/19 09:30 Dose: 180 mg - Free Text/Narrative Note: I have seen and evaluated the patient with the resident. I have discussed findings and treatment plan with the resident. I agree with the assessment and plan outlined in the following note.
== END 2019-03-27 15:05 | disposition home or self-care (01) | DRG 309 ==
LOC: MW.ED 18:42 → MW.ICU 18:58 → OBSVTOIN 18:58
PROVIDERS: ADMIT Internal Medicine; ATTEND Internal Medicine
DX: I48.91 Unspecified atrial fibrillation (principal); I48.20 Chronic atrial fibrillation, unspecified; Z99.81 Dependence on supplemental oxygen; J96.11 Chronic respiratory failure with hypoxia; L27.0 Generalized skin eruption due to drugs and medicaments taken internally; T46.1X5A Adverse effect of calcium-channel blockers, initial encounter; E83.42 Hypomagnesemia; D69.6 Thrombocytopenia, unspecified; Z79.01 Long term (current) use of anticoagulants; D75.89 Other specified diseases of blood and blood-forming organs; D53.9 Nutritional anemia, unspecified; Z86.73 Personal history of transient ischemic attack (TIA), and cerebral infarction without residual deficits; E78.00 Pure hypercholesterolemia, unspecified; I10 Essential (primary) hypertension; K21.9 Gastro-esophageal reflux disease without esophagitis; E11.9 Type 2 diabetes mellitus without complications; E66.9 Obesity, unspecified; Z88.8 Allergy status to other drugs, medicaments and biological substances; Z79.84 Long term (current) use of oral hypoglycemic drugs; Z79.899 Other long term (current) drug therapy; Z90.49 Acquired absence of other specified parts of digestive tract; Z68.39 Body mass index [BMI] 39.0-39.9, adult
CPT/HCPCS: 36415; 71045; 71045-26; 71250; 71250-26; 80048; 80053; 82607; 82746; 82962; 84484; 85025; 85610; 93005; 96361; 96374; 96375; 99285-25; A9270-GY; J0282; J1200; J2001; J2704; J3010; J3490; J7040

== ENCOUNTER 2019-08-19 17:33 | Emergency (ER) | payer MEDICARE, OTHER | END 2019-08-19 19:05 | disposition still patient (30) | LOC: MW.ED 17:33 | DX: Z53.21 Procedure and treatment not carried out due to patient leaving prior to being seen by health care provider (principal) ==